=== PATIENT | female | born 1960 | race Caucasian/White ===

== ENCOUNTER 2021-02-22 17:40 | Inpatient (IN) | payer SELFPAY ==
[2021-02-22 21:48] LABS: Urine Blood 1+ (Negative); Urine Glucose Negative (Negative); Urine Protein Negative (Negative)
[2021-02-22 21:57] LABS: Absolute Lymphocytes (CBC) 2.6 K/uL (0.7-4.9); Basophils % 0.9 % (0-1.3); Hematocrit 41.6 % (36.0-45.0); Lymphocytes % 24.7 % (15.3-44.8); MPV 7.8 fL (7.6-11.3); RBC Red Blood Cell Count 4.44 M/uL (3.86-4.86)
[2021-02-22] MEDS ORDERED: NA CHLORIDE 0.9% 1,000 ML ONE (22:18)
[2021-02-22 22:21] LABS: ALT/SGPT 88 U/L (12-78); AST/SGOT 60 U/L (15-37); Albumin 4.2 g/dL (3.4-5.0); Alkaline Phosphatase 103 U/L (45-117); BUN Blood Urea Nitrogen 7 mg/dL (7-18); Barbiturates NEGATIVE (NEGATIVE); Benzodiazepines NEGATIVE (NEGATIVE); Bicarbonate 22 mmol/L (21-32); Bilirubin Direct 0.2 mg/dL (0-0.2); Bilirubin Total 0.6 mg/dL (0.2-1.0); Cocaine NEGATIVE (NEGATIVE); Glucose Level 96 mg/dL (74-106); METHAMPHETAM NEGATIVE (NEGATIVE); Methadone NEGATIVE (NEGATIVE); Opiates NEGATIVE (NEGATIVE); Phencyclidine NEGATIVE (NEGATIVE); Potassium 3.5 mmol/L (3.5-5.1); Protein, Total 8.1 g/dL (6.4-8.2); Sodium Level 129 mmol/L (136-145); THC Cannibis POSITIVE (NEGATIVE)
[2021-02-22 22:32] LABS: Protime INR 0.86
[2021-02-22] MEDS ORDERED: KETOROLAC 30 MG/ML INJ ONE (23:33)
[2021-02-23 00:02] LABS: Urine Bacteria <20 /HPF (<20); Urine RBC <5 /HPF (NONE SEEN)
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
--- NOTE | 2021-02-23 00:17 | EDPHYS ---
Physician Documentation [facility] Name: Mary Zhang Age: 60 yrs Sex: Female : 1960 Arrival Date: 02/22/2021 Time: 17:45 Bed 17 Private MD: Aron Vega E ED Physician Jacques Davila HPI: 02/22 20:26 This 60 yrs old Female presents to ER via Ambulatory with complaints of pm1 Depression, Suicidal Ideation, Right Flank Pain. 20:26 The patient complains of pain in the right low back. The pain radiates to the right pm1 lower quadrant. Onset: The symptoms/episode began/occurred 8 day(s) ago, and became worse 2 day(s) ago. Modifying factors: The symptoms are alleviated by nothing. the symptoms are aggravated by nothing. Associated signs and symptoms: Pertinent negatives: diarrhea, dysuria, fever, urinary frequency, nausea, vomiting. Severity of pain: in the emergency department the pain is actually worse. The patient has been recently seen by a physician: the patient's primary care provider, Dr. Ibanez earlier today, with similar presenting complaints, and was sent to the [facility] Emergency Department for further evaluation. Patient went to her PCP, Dr. Ibanez, today for two complaints. She was feeling depression over the upcoming one year anniversary of the of her and the of her father in November. 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 Discussed it with her PCP and he accepted a verbal no self harm promise and discharged her home. Patient was also complaining of 8 days of right flank pain that has gotten worse over the past two days. PCP believed that she might have a bad UTI and wanted her to come to the ER for evaluation. Historical: - Allergies: 17:53 No Known Allergies; ll1 - Home Meds: 22:41 trazodone 50 mg Oral tab 1 tab nightly [Active]; amlodipine 10 mg tab 1 tab once daily sf [Active]; fluoxetine 10 mg Oral cap 10 mg once daily [Active]; lorazepam 0.5 mg Oral tab 1 tab 2 times per day [Active]; - PMHx: 17:53 Depression; Hypertension; Anxiety; ll1 - PSHx: 17:53 Hysterectomy; arm sx; ll1 - Immunization history:: Flu vaccine is up to date. - Social history:: Smoking status: Patient reports the use of cigarette tobacco products, smokes one pack cigarettes per day. ROS: 20:26 Constitutional: Negative for fever, chills, and weight loss, Cardiovascular: Negative pm1 for chest pain, palpitations, and edema, Respiratory: Negative for shortness of breath, cough, wheezing, and pleuritic chest pain. 20:26 : Negative for injury, bleeding, discharge, and swelling, MS/Extremity: Negative for injury and deformity, Skin: Negative for injury, rash, and discoloration, Neuro: Negative for headache, weakness, numbness, tingling, and seizure. 20:26 Abdomen/GI: Positive for abdominal pain, of the right lower quadrant. 20:26 Back: Positive for flank pain, on the right. 20:26 Psych: Positive for depression, suicidal ideation, Negative for drug dependence, alcohol dependence, auditory hallucinations, homicidal ideation, suicide gesture. Exam: 20:26 Constitutional: This is a well developed, well nourished patient who is awake, alert, pm1 and in no acute distress. Head/Face: Normocephalic, atraumatic. 20:26 MS/ Extremity: Pulses equal, no cyanosis. Neurovascular intact. Full, normal range of motion. 20:26 Cardiovascular: Exam negative for acute changes, Rate: normal, Rhythm: regular, Pulses: no pulse deficits are appreciated, Edema: is not appreciated. 20:26 Respiratory: Exam negative for acute changes, respiratory distress, shortness of breath. 20:26 Abdomen/GI: Exam negative for acute changes, Inspection: abdomen appears normal, Palpation: abdomen is soft and non-tender, in all quadrants. 20:26 Back: pain, that is mild, of the right low back, vertebral tenderness, is not appreciated. 20:26 Neuro: Exam negative for acute changes, Orientation: is normal, Mentation: is normal, Motor: is normal, moves all fours. 20:26 Psych: Behavior/mood is pleasant, cooperative, Affect is calm, Oriented to person, place, time, Judgement / Insight is normal. Delusions/hallucinations are not present. Vital Signs: 17:50 BP 156 / 84; Pulse 105; Resp 17; Temp 98.5; Pulse Ox 95% ; Weight 58.06 kg; Height 5 ll1 ft. 3 in. (160.02 cm); Pain 9/10; 21:38 BP 122 / 82; Pulse 97; Resp 16; Pulse Ox 97% ; sf 22:00 BP 157 / 76; Pulse 98; Resp 16; Pulse Ox 95% ; sf 22:30 BP 143 / 68; Pulse 96; Resp 16; Pulse Ox 96% ; sf 23:00 BP 162 / 78; Pulse 97; Resp 16; Pulse Ox 98% ; sf 04 00:00 BP 144 / 78; Pulse 88; Resp 16; Pulse Ox 94% on R/A; sf 00:05 Pain 7/10; sf 01:00 BP 155 / 78; Pulse 91; Resp 16; Pulse Ox 95% ; sf 02:00 BP 158 / 90; Pulse 108; Resp 16; Pulse Ox 97% ; sf 03:00 BP 146 / 68; Pulse 92; Resp 16; Pulse Ox 95% ; sf 04:00 BP 149 / 72; Pulse 95; Resp 16; Pulse Ox 96% ; sf 05:00 BP 131 / 75; Pulse 97; Resp 16; Pulse Ox 95% ; sf 06:00 BP 135 / 70; Pulse 83; Resp 16; Pulse Ox 97% ; sf 07:00 BP 160 / 90; Pulse 93; Resp 18; Pulse Ox 94% on R/A; mh5 20:17 BP 126 / 60; Pulse 78; Resp 18; Temp 98.7; Pulse Ox 98% ; ea 02/22 17:50 Body Mass Index 22.67 (58.06 kg, 160.02 cm) ll1 MDM: 02/22 20:09 Patient medically screened. pm1 21:29 Data reviewed: vital signs. Data interpreted: Pulse oximetry: on room air is 95 %. pm1 Interpretation: normal. 23:56 Counseling: I had a detailed discussion with the patient and/or guardian regarding: the pm1 historical points, exam findings, and any diagnostic results supporting the discharge/admit diagnosis, lab results, radiology results, the need to transfer to another facility, [facility] does not immediately have the required specialist. 02/23 00:00 ED course: Patient reports that she no longer feels suicidal after hearing her pm1 diagnosis. She does not want to and wants treatment for her likely renal cell cancer. 01:50 Physician consultation: Chun Gaston was contacted at 01:50, regarding regarding pm1 transfer, to [facility]. Patient's renal cancer is not a surgical emergency and patient does not require emergent transfer to address it. Recommends follow up with Dr. Dennison who is urology/oncology for follow up. Have the patient take a copy of the report and images on CD to her appointment. Give the patient the following number to schedule an outpatient appointment with Dr. Dennison [phone]. 02:18 ED course: Discussed plan of care with patient based on conversation with Dr. Gaston. pm1 Patient is agreeable with the plan. Informed her that the next plan is for the patient to be evaluated by [facility] since she is medically cleared. 02:56 ED course: Discussed case with [facility], Recommendation for acute inpatient pm1 treatment. Discussed plan of care with the patient and she is agreeable to going to a inpatient facility voluntarily. 20:15 ED course: Patient alert and rational. Said she is not suicidal or homicidal. Does not pkl want to be transferred to psychiatric facility. Will follow up at [facility] as outpatient and will make appointment tomorrow. 21:07 ED course: Talked to Dr. Barker ( Urologist ) To start on IV Heparin and will consult pkl tomorrow.. 21:40 ED course: Talked to Balwinder ( [place] ) Admit to Dr. Scott. pkl 02/22 20:19 Order name: Acetaminophen; Complete Time: 22:59 pm1 02/22 20:19 Order name: Basic Metabolic Panel; Complete Time: 22:59 pm1 02/22 20:19 Order name: CBC with Diff; Complete Time: 22:59 pm1 02/22 20:19 Order name: ETOH Level; Complete Time: 22:59 pm1 02/22 20:19 Order name: Hepatic Function; Complete Time: 22:59 pm1 02/22 20:19 Order name: PT-INR; Complete Time: 22:59 pm1 02/22 20:19 Order name: Ptt, Activated; Complete Time: 22:59 pm1 02/22 20:19 Order name: Salicylate; Complete Time: 22:59 pm1 02/22 20:19 Order name: Urine Drug Screen; Complete Time: 22:59 pm1 02/22 20:50 Order name: Urine Microscopic Only; Complete Time: 00:14 pm1 02/22 21:48 Order name: Urine Dipstick-Ancillary; Complete Time: 21:53 EDMS 02/22 23:49 Order name: SARS-COV-2 RT PCR; Complete Time: 23:56 EDMS 02/24 06:07 Order name: CBC with Automated Diff EDMS 02/22 20:19 Order name: EKG; Complete Time: 20:20 pm1 02/22 20:50 Order name: CT Abd/Pelvis - IV Contrast Only; Complete Time: 20:25 pm1 02/23 07:12 Order name: Diet Regular; Complete Time: 07:13 mh5 02/24 06:25 Order name: Comprehensive Metabolic Panel EDMS 02/24 06:25 Order name: Lactic Dehydrogenase EDMS 02/24 06:25 Order name: T4 Free EDMS 02/24 06:25 Order name: Magnesium EDMS 02/24 06:25 Order name: Thyroid Stimulating Hormone EDMS 02/24 06:50 Order name: PTT, Activated Partial Thromb EDMS 02/22 20:19 Order name: EKG - Nurse/Tech; Complete Time: 22:18 pm1 02/22 20:19 Order name: IV Saline Lock; Complete Time: 21:51 pm1 02/22 20:19 Order name: Labs collected and sent; Complete Time: 21:51 pm1 02/22 20:19 Order name: Urine Dipstick-Ancillary (obtain specimen); Complete Time: 21:51 pm1 02/23 10:33 Order name: Diet Finger Food; Complete Time: 10:34 bd 02/23 15:06 Order name: Diet Finger Food; Complete Time: 15:06 bd 02/23 22:49 Order name: CONS Physician Consult EDAZ Administered Medications: 02/22 22:11 Drug: NS 0.9% 1000 ml Route: IV; Rate: 1000 ml; Site: right forearm; sf 02/23 00:00 Follow up: Response: No adverse reaction; IV Status: Completed infusion; IV Intake: sf 1000ml 02/22 23:18 Drug: TORadol - Ketorolac 15 mg Route: IVP; Site: right forearm; sf 02/23 00:05 Follow up: Response: No adverse reaction; Pain is decreased sf 07:57 Drug: amLODIPine 10 mg Route: PO; ld1 08:30 Follow up: Response: No adverse reaction ld1 08:08 Drug: Tylenol #3 (300 mg-30 mg) 1 tablet Route: PO; ld1 08:40 Follow up: Response: No adverse reaction ld1 08:46 Drug: FLUoxetine 10 mg Route: PO; ld1 09:19 Follow up: Response: No adverse reaction bp 21:35 Drug: Heparin (DVT/PE Drip) 18 units/kg/hr - (HEParin 50952 units, D5W 500 ml) ea {Co-Signature: em (Colton Cazares RN).} Route: IV; Rate: 1 calculated rate; Site: right forearm; 22:23 Drug: Tylenol #3 (300 mg-30 mg) 1 tablet Route: PO; ea Disposition: 20:15 Co-signature as Attending Physician, Jacques Davila MD. pkl Disposition: 02/23/21 21:46 Hospitalization ordered by Em Scott for Inpatient Admission. Preliminary diagnosis is Depression.. Large right renal mass with tumor thrombus extending into renal vein. - Bed requested for Telemetry/MedSurg (Inpatient). - Status is Inpatient Admission. jd3 - Condition is Stable. - Problem is new. - Symptoms are unchanged. Signatures: Dispatcher [employer] [facility] Elizabeth Rousseau RN RN dw Lam, Pin, MD MD pkl Nieto, Roman, MD MD rn Sacha Noe, EDUCATIONAL SPEECH LANGUAGE CLINICIAN EDUCATIONAL SPEECH LANGUAGE CLINICIAN pm1 Julia Naidu RN RN ea Davies, Jonathon, RN RN jd3 Indira Pollock RN RN ll1 Bry Davila RN RN sf Dibbern, Lauren, RN RN ld1 Sudarshan Khalil RN bp Colton Cazares RN em Corrections: (The following items were deleted from the chart) 02/22 22:28 21:57 CORONAVIRUS+MR.LAB.GIORGIO ordered. [facility] 02/23 00:14 02/22 23:56 Counseling: I had a detailed discussion with the patient and/or guardian pm1 regarding: the historical points, exam findings, and any diagnostic results supporting the discharge/admit diagnosis, pm1 02/23 00:26 00:16 02/23/2021 00:16 Transfer ordered to [facility]. pm1 Diagnosis is Other intra-abdominal and pelvic swelling, mass and lump - Right renal massSuicidal ideations. Reason for transfer: Specialty. Accepting physician is MD. Condition is Stable. Problem is new. Symptoms have improved. pm1 02:58 00:26 02/23/2021 00:16 Transfer ordered to [facility]. pm1 Diagnosis is Other intra-abdominal and pelvic swelling, mass and lump - Right renal massSuicidal ideations; Right Flank Pain. Reason for transfer: Specialty. Accepting physician is . Condition is Stable. Problem is new. Symptoms have improved. pm1 20:22 02:58 02/23/2021 00:16 Transfer ordered to [facility]. Diagnosis is Suicidal pkl ideations; Other intra-abdominal and pelvic swelling, mass and lump - Right renal mass; Right Flank Pain. Reason for transfer: Specialty. Accepting physician is MD. Condition is Stable. Problem is new. Symptoms have improved. pm1 20:35 20:24 02/23/2021 20:24 Discharged to Home. Impression: Depression. Condition is Stable. pkl Forms are Medication Reconciliation Form, Thank You Letter, Antibiotic Education, Prescription Opioid Use. Follow up: Private Physician; When: Tomorrow; Reason: Re-evaluation by your physician. Problem is new. Symptoms have improved. pkl 21:41 21:39 02/23/2021 20:24 Discharged to Home. Impression: Depression. Large right renal pkl mass with tumor thrombus extending into right renal vein. Condition is Stable. Forms are Medication Reconciliation Form, Thank You Letter, Antibiotic Education, Prescription Opioid Use. Follow up: Private Physician; When: Tomorrow; Reason: Re-evaluation by your physician. Problem is new. Symptoms have improved. pkl 02/24 00:58 02/23 21:46 Hospitalization Ordered by Em Scott MD for Inpatient Admission. dw Preliminary diagnosis is Depression.. Large right renal mass with tumor thrombus extending into renal vein. Bed requested for Telemetry/MedSurg (Inpatient). Status is Inpatient Admission. Condition is Stable. Problem is new. Symptoms are unchanged. pkl 02/24 06:38 00:58 02/23/2021 21:46 Hospitalization Ordered by Em Scott MD for Inpatient dw Admission. Preliminary diagnosis is Depression.. Large right renal mass with tumor thrombus extending into renal vein. Bed requested for [facility] ER HOLD. Status is Inpatient Admission. Condition is Stable. Problem is new. Symptoms are unchanged. dw 08:31 06:38 02/23/2021 21:46 Hospitalization Ordered by Em Scott MD for Inpatient jd3 Admission. Preliminary diagnosis is Depression.. Large right renal mass with tumor thrombus extending into renal vein. Bed requested for Telemetry/MedSurg (Inpatient). Status is Inpatient Admission. Condition is Stable. Problem is new. Symptoms are unchanged. dw
[2021-02-23] MEDS ORDERED: AMLODIPINE 10 MG TAB ONE (08:11)
[2021-02-23] MEDS ORDERED: CODEINE 30MG/APAP 300MG TAB ONE ×2 (08:21→22:40)
[2021-02-23] MEDS ORDERED: FLUOXETINE 10 MG CAP PO ONE (08:30)
--- NOTE | 2021-02-23 12:00 | RAD REPORT ---
EXAM DESCRIPTION: CT - Abdomen Pelvis W Contrast - 02/23/2021 6:58 am CLINICAL HISTORY: FLANK PAIN. COMPARISON: None. TECHNIQUE: CT of the abdomen and pelvis was performed following intravenous administration of iodina asha contrast. Arterial phase images through the abdomen, and portal venous phase images through the a bdomen and pelvis were obtained. Oral contrast was not administered. Axial, coronal, and sagittal sof t tissue window reconstructions were created and sent to PACS. This exam was performed according to our departmental dose-optimization program, which includes autom ated exposure control, adjustment of the mA and/or kV according to patient size and/or use of iterati ve reconstruction technique. FINDINGS: Thoracic: Small bilateral fat-containing Bochdalek hernias. Hepatobiliary: Tiny hypodensity along the lateral of the right hepatic lobe measures 0.8 cm, possibly a cyst or benign hemangioma. No concerning hepatic lesion identified. The hepatic and portal veins a re patent. The gallbladder is unremarkable. No biliary ductal dilatation. Pancreas: Unremarkable. Spleen: Unremarkable. Gastrointestinal: No evidence of bowel obstruction or perienteric inflammation. The appendix is holden l. Adrenals: No abnormality identified in either adrenal gland. Renal: Right interpolar renal mass measures 4.2 x 4.6 x 5.1 cm centered in the renal sinus. No extens ion beyond the renal capsule. There is tumor thrombus extending into the right renal vein by 2.1 cm. No thrombus identified IVC. The single right renal artery is patent. No hydronephrosis or urolithiasi s. Bladder/Reproductive: Unremarkable appearance of the urinary bladder by CT technique. Vascular/Lymphatics: No lymphadenopathy identified by CT size criteria. Abdominal aorta is normal in caliber. Moderate atherosclerosis. The major visceral vessels are patent. Musculoskeletal: No concerning osseous lesion identified. Osteopenia. L5-S1 disc and endplate degener ative changes. Mild anterior wedge compression deformity at L4. Fluid / peritoneum: No significant free fluid. No free intraperitoneal air identified. IMPRESSION Large right renal mass centered in the renal sinus with tumor thrombus extending into the right renal vein by 2.1 cm. No IVC thrombus identified. Findings are concerning for malignancy until proven otherwise. Electronically signed by: Mary Quevedo MD 02/22/2021 11:27 PM CDT Due to temporary technical issues with the PACS/Fluency reporting system, reports are being signed by the in house radiologist without review as a courtesy to ensure prompt reporting. The interpreting r adiologist is fully responsible for the content of the report.
--- NOTE | 2021-02-23 12:47 | EKG ---
Test Date: 2021-02-22 Test Time: 22:08:41 Inspector Multifocal Lens: STAN MEASUREMENT RESULTS: Intervals: Rate: 96 SC: 120 QRSD: 86 QT: 364 QTc: 459 [place]: P: 76 SC: 120 QRS: 68 T: 65 INTERPRETIVE STATEMENTS: Normal sinus rhythm Minimal voltage criteria for LVH, may be normal variant ST abnormality, possible digitalis effect Abnormal ECG No previous ECG available for comparison Electronically Signed On 02-23-21 12:45:26 CDT by Andriy Gilman
[2021-02-23] MEDS ORDERED: HEPARIN/D5W 25,000 UNIT/500 ML BAG IV ONE (21:37)
[2021-02-23] MEDS ORDERED: HEPARIN 5000 UNIT/ML 1 ML VIAL ONE (21:37)
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
[2021-02-24 02:51] VITALS: BMI 22.6
[2021-02-24] MEDS ORDERED: ACETAMINOPHEN 500 MG TAB PO PRN (03:42)
[2021-02-24] MEDS ORDERED: ALBUTEROL 2.5 MG/3 ML NEB SOL NEB PRN (03:42)
[2021-02-24] MEDS ORDERED: ONDANSETRON 4 MG/2 ML VIAL IV PRN (03:42)
[2021-02-24] MEDS: MORPHINE 2 MG/ML SYR IV PRN ×3 (05:25→20:54)
[2021-02-24] MEDS ORDERED: MORPHINE 2 MG/ML SYR ONE (05:45)
[2021-02-24 05:51] LABS: Basophils % 1.2 % (0-1.3); Hematocrit 37.7 % (36.0-45.0); Lymphocytes % 27.5 % (15.3-44.8); MPV 7.9 fL (7.6-11.3); RBC Red Blood Cell Count 3.92 M/uL (3.86-4.86)
[2021-02-24 06:24] LABS: ALT/SGPT 62 U/L (12-78); AST/SGOT 37 U/L (15-37); Albumin 3.3 g/dL (3.4-5.0); Alkaline Phosphatase 74 U/L (45-117); BUN Blood Urea Nitrogen 8 mg/dL (7-18); Bicarbonate 28 mmol/L (21-32); Bilirubin Total 0.6 mg/dL (0.2-1.0); Glucose Level 91 mg/dL (74-106); Magnesium 2.2 mg/dL (1.8-2.4); Potassium 3.3 mmol/L (3.5-5.1); Protein, Total 6.4 g/dL (6.4-8.2); Sodium Level 138 mmol/L (136-145)
[2021-02-24] MEDS ORDERED: POTASSIUM 25 MEQ EFFERV TAB PO ONE ×2 (06:57→15:55)
[2021-02-24] MEDS: NICOTINE 14 MG/PAT TD SCH (08:45)
[2021-02-24] MEDS: FLUOXETINE 10 MG CAP PO SCH (08:58)
[2021-02-24] MEDS: AMLODIPINE 10 MG TAB PO SCH (08:58)
--- NOTE | 2021-02-24 20:17 | RAD REPORT ---
EXAM DESCRIPTION: CT - Head Brain W/Wo Con - 02/24/2021 8:09 pm CLINICAL HISTORY: Assess for brain metastases relative to renal mass Headache, drowsiness COMPARISON: Abdomen Pelvis W Contrast dated 02/22/2021 TECHNIQUE: All CT scans are performed using dose optimization technique as appropriate and may inclu de automated exposure control or mA/KV adjustment according to patient size. FINDINGS: No intracranial hemorrhage, hydrocephalus or extra-axial fluid collection.No areas of brai n edema or evidence of midline shift. Post-contrast sequences shows no pathologic enhancement. The paranasal sinuses and mastoids are clear. The calvarium is intact. IMPRESSION: No findings suspicious for intracranial metastasis. If there is continued clinical conc gloria for intracranial metastatic disease, MRI brain with contrast would be recommended.
--- NOTE | 2021-02-24 20:24 | RAD REPORT ---
EXAM DESCRIPTION: CT - Thorax W/ Con CLINICAL HISTORY: Chest pain Right renal mass with tumor thrombus COMPARISON: No comparisons FINDINGS: Several subtle vague ground-glass area of nodularity seen subpleural location of the upper lobes. These are not typical nodules seen in cases of metastatic disease. Surveillance imaging the n odules may be considered. No pleural thickening or pleural effusion. No pneumothorax. No axillary, mediastinal or hilar adenopathy. No lytic or blastic bone lesion. No gross upper abdominal finding. All CT scans are performed using dose optimization technique as appropriate and may include automated exposure control or mA/KV adjustment according to patient size. IMPRESSION: Several vague small ground-glass areas of nodularity in a subpleural location both upper lobes is low suspicion for metastatic disease.Suggest followup surveillance CT chest in 3 months.
[2021-02-24 23:51] LABS: Urine Appearance CLEAR (Clear); Urine Bilirubin NEGATIVE (Negataive); Urine Blood NEGATIVE (Negative); Urine Color YELLOW (Yellow); Urine Glucose NEGATIVE (Negative); Urine Protein NEGATIVE (Negative); Urine Specific Gravity <=1.005 (1.005-1.030); Urine Urobilinogen 0.2 mg/dL (0.2-1.0); Urine pH 7.5 (5.0-7.0)
[2021-02-25 00:08] LABS: Urine Microscopic Reflex NO UMIC
[2021-02-25] MEDS: LORAZEPAM 0.5 MG TABLET PO PRN (00:28)
[2021-02-25] MEDS: MORPHINE 2 MG/ML SYR IV PRN ×4 (01:54→19:26)
[2021-02-25] MEDS: HEPARIN/D5W 25,000 UNIT/500 ML BAG IV SCH (01:55)
[2021-02-25 05:33] LABS: BUN Blood Urea Nitrogen 8 mg/dL (7-18); Bicarbonate 31 mmol/L (21-32); Glucose Level 91 mg/dL (74-106); Potassium 4.2 mmol/L (3.5-5.1); Sodium Level 139 mmol/L (136-145)
[2021-02-25] MEDS: AMLODIPINE 10 MG TAB PO SCH (07:51)
[2021-02-25] MEDS: NICOTINE 14 MG/PAT TD SCH (07:51)
[2021-02-25] MEDS: FLUOXETINE 10 MG CAP PO SCH (07:51)
--- NOTE | 2021-02-25 17:00 | RAD REPORT ---
EXAM DESCRIPTION: MRI - Mri Abdomen W/Wo Cont - 02/25/2021 4:35 pm CLINICAL HISTORY: Right renal mass/tumor thrombus. Flank pain COMPARISON: Head Brain W/Wo Con dated 02/24/2021; Thorax W/ Con dated 02/24/2021; Abdomen Pelvis W Con trast dated 02/22/2021 FINDINGS: There is an irregular mass lesion involving the posterior aspect of the mid right kidney m easuring 43 x 38 mm. The mass appears to extend into the right renal pelvis. The proximal right renal vein shows a small amount of tumor thrombus. The thrombus does not appear to extend into the vena ca va. The left kidney appears unremarkable. The visualize aspects the appears old organs appear without agg ressive abnormality. No bulky adenopathy in the abdomen. IMPRESSION: Irregular mass lesion involving the posterior mid right kidney with extension into the r enal hilum. Neoplastic process is the most likely etiology. There is a small amount of thrombus in the right renal vein and near the hepatic hilum. No thrombus s een in the vena cava.
[2021-02-25] MEDS: ENSURE ENLIVE 237 ML CAN PO SCH (19:27)
[2021-02-25] MEDS: TRAZODONE 50 MG TABLET PO PRN (22:14)
--- NOTE | 2021-02-26 00:14 | CON ---
Date of Consultation: 02/24/2021 Reason For Consultation: Right renal mass. History Of Present Illness: Ms. Zhang is a 60-year-old woman with hysterectomy, hypertension, depre ssion, COPD, who ultimately presented to the Emergency Department with complaints of about a 1-week h istory of right lower quadrant and flank pain. The pain was constant, sharp, and 8/10 in severity. Associated with the pain, she had night sweats and anorexia that resulted in 25-30 pounds of weight l oss over the last few months. She also noted some pelvic cramping, which she related and thought may have been kidney stones. She ultimately presented to the Emergency Department where a CT scan was p erformed revealing a right interpolar renal mass measuring 4.2 x 4.6 x 5.1 cm, centered in the renal sinus without extension beyond the renal capsule, but with tumor thrombus extending into the right re nal vein by 2.1 cm. No thrombus was identified in the inferior vena cava. I was initially consulted by an Emergency Department physician at the time of the patient's admission. When I visited with th e patient, she provided the history as described above and denied the presence of any gross hematuria or dysuria. Past Medical History: As described above. Hypertension, COPD, depression, and history of hysterecto my. Social History: The patient is a smoker actively of as much as 1 pack per day and has been doing so for 40 years. Physical Examination: The patient was alert, awake, and oriented x3, in no acute distress. She was attentive and cooperative and pleasant and conversant. There was no dyspnea or signs of respiratory distress nor use of accessory muscles to breathe. Her abdomen was nontender. She was lying in bed without any signs of physical musculoskeletal limitation. Laboratory Data: Laboratory analysis, 02/24/2021, creatinine 0.49, calcium 8.4, alkaline phosphatase within normal limits, TSH elevated at 9.12. Assessment And Recommendations: This is a 60-year-old woman with hypertension, depression, chronic o bstructive pulmonary disease, and history of hysterectomy, who presents with a centrally located righ t 5.1 cm renal mass involving sinus fat and extending into the renal vein by 2.1 cm. Since this mass is suspicious based on her renal vein extension for being renal cell carcinoma, stagi ng workup will be planned as described below. However, given her extensive smoking history and the c entral location of the mass, potentially involving the renal pelvis, I recommend the following: Voided cytology to assess for signs of urothelial malignancy, which if present would alter the recomm endations for surgical management to include a nephroureterectomy in addition to cystoscopy. At this point, however, given the suspicion that this represents a renal cell carcinoma, we will arra nge brain imaging as well as chest imaging via CT given the tumor thrombus extension, which would sug gest more aggressive high-risk disease. I will also recommend an MRI of the abdomen to more carefull y stage the renal mass and the tumor thrombus extension to determine whether she might be amenable to a laparoscopic nephrectomy if this is renal cell likely or if she might require transfer to the [facility] capable of bypass in order to plan for excision of a portion of the tumor thrombus out of the in ferior vena cava. Addendum: 02/25/2021, MRI of the abdomen with and without contrast demonstrates an irregular mass le emily involving the posterior aspect of the mid right kidney measuring 4.3 x 3.8 cm. The mass appears to extend into the right renal pelvis. The proximal right renal vein shows a small amount of tumor thrombus. The tumor thrombus does not appear to extend into the vena cava. The left kidney is unrem arkable. Again, I directly reviewed the images of the MRI in great detail, and the tumor thrombus does extend significantly into the right renal vein, but is approximately 1.5 cm from the junction with the IVC t o my measurement. CT of the brain and head with and without contrast done, 02/24/2021: No suspicious findings for intr acranial metastasis. 02/24/2021, CT of the thorax with contrast, impression: Several vague small ground-glass areas of no dularity in a subpleural location of both upper lobes bilaterally with low suspicion that it represen ts metastatic disease. Followup surveillance chest CT in 3 months was recommended. Total time spent in consultation over 1 hour with approximately 30 minutes [id number] time with the patient spent. MARTA/SILVA Voice ID: [id number] Report ID: [id number]
[2021-02-26] MEDS: MORPHINE 2 MG/ML SYR IV PRN ×4 (01:55→20:30)
[2021-02-26 03:59] LABS: Absolute Lymphocytes (CBC) 2.2 K/uL (0.7-4.9); Hematocrit 40.5 % (36.0-45.0); Lymphocytes % 32.8 % (15.3-44.8); RBC Red Blood Cell Count 4.18 M/uL (3.86-4.86)
[2021-02-26 04:16] LABS: Albumin 3.5 g/dL (3.4-5.0); Bilirubin Total 0.2 mg/dL (0.2-1.0); Magnesium 2.3 mg/dL (1.8-2.4); Potassium 4.6 mmol/L (3.5-5.1); Protein, Total 6.6 g/dL (6.4-8.2)
[2021-02-26] MEDS: FLUOXETINE 10 MG CAP PO SCH (07:35)
[2021-02-26] MEDS: NICOTINE 14 MG/PAT TD SCH (07:36)
[2021-02-26] MEDS: AMLODIPINE 10 MG TAB PO SCH (07:36)
[2021-02-26] MEDS: ENSURE ENLIVE 237 ML CAN PO SCH ×2 (07:36→20:59)
[2021-02-26] MEDS: HEPARIN/D5W 25,000 UNIT/500 ML BAG IV SCH (11:48)
[2021-02-26] MEDS ORDERED: DOCUSATE NA 100 MG CAP PO ONE (19:49)
[2021-02-26] MEDS: TRAZODONE 50 MG TABLET PO PRN (20:30)
[2021-02-26] MEDS: DOCUSATE NA 100 MG CAP PO PRN (20:30)
[2021-02-27] MEDS: MORPHINE 2 MG/ML SYR IV PRN ×4 (03:47→23:07)
[2021-02-27] MEDS: AMLODIPINE 10 MG TAB PO SCH (08:18)
[2021-02-27] MEDS: FLUOXETINE 10 MG CAP PO SCH (08:21)
[2021-02-27] MEDS: NICOTINE 14 MG/PAT TD SCH (08:26)
[2021-02-27] MEDS: ENSURE ENLIVE 237 ML CAN PO SCH ×2 (08:26→20:37)
[2021-02-27] MEDS: LORAZEPAM 0.5 MG TABLET PO PRN (14:27)
[2021-02-27] MEDS: HEPARIN/D5W 25,000 UNIT/500 ML BAG IV SCH (16:06)
[2021-02-27] MEDS: DOCUSATE NA 100 MG CAP PO PRN (20:34)
[2021-02-27] MEDS: TRAZODONE 50 MG TABLET PO PRN (23:08)
[2021-02-28] MEDS: LORAZEPAM 0.5 MG TABLET PO PRN ×2 (01:17→11:17)
--- NOTE | 2021-02-28 06:46 | P.PN ---
Subjective Date of Service: 02/25/21 Subjective: No new changes, No C/O voiced, Improving Patient is doing well. Does seem as depressed. Explain her about her current clinical situation. I did speak to Oncology and may not need anti coagulation and surgical intervention has the thrombus with probably will be removed if patient has nephrectomy. I this time will continue heparin drip. Await decision by surgery after reviewing MRI. Review of Systems 10-point ROS is otherwise unremarkable Physical Examination - Vital Signs Temperature: 97.6 F Blood Pressure: 117/61 Pulse: 79 Respirations: 18 Pulse Ox (%): 94 - Physical Exam General: Alert, In no apparent distress, Oriented x3 Respiratory: Clear to auscultation bilaterally, Normal air movement Cardiovascular: Regular rate/rhythm, Normal S1 S2 Gastrointestinal: Normal bowel sounds, Soft and benign, Non-distended Musculoskeletal: No clubbing, No swelling Neurological: Normal strength at 5/5 x4 extr, Normal tone, Sensation intact, Cranial nerves 3-12 intact Assessment & Plan - Problems (Diagnosis) (1) Renal mass Current Visit: Yes Status: Acute (2) Depression Current Visit: Yes Status: Chronic Qualifiers: Depression Type: unspecified Qualified Code(s): F32.9 - Major depressive disorder, single episode, unspecified (3) HTN (hypertension) Current Visit: Yes Status: Chronic Qualifiers: Hypertension type: essential hypertension Qualified Code(s): I10 - Essential (primary) hypertension - Plan Plan: 1. Urology consultation 2. Plan for surgery early next week 3. Heparin drip 4. Out of bed and ambulate 5. Hold off on antidepressant at this time 6. GI and DVT prophylaxis Discharge Plan: Home - Advance Directives Does patient have a Living Will: Yes Does patient have a Durable POA for Healthcare: Yes - Code Status/Comfort Care Code Status Assessed: Yes Code Status: Full Code Critical Care: No Time Spent Managing PTS Care (In Minutes): 45
--- NOTE | 2021-02-28 06:50 | P.PN ---
Date of Service: 02/26/21 Subjective Patient is doing well with no new complaints. Awaiting Urology input. Continue with heparin drip Review of Systems 10-point ROS is otherwise unremarkable Physical Examination - Vital Signs Reviewed - Physical Exam General: Alert, In no apparent distress, Oriented x3 Respiratory: Clear to auscultation bilaterally, Normal air movement Cardiovascular: Regular rate/rhythm, Normal S1 S2 Gastrointestinal: Normal bowel sounds, Soft and benign, Non-distended Assessment & Plan - Problems (Diagnosis) (1) Renal mass Current Visit: Yes Status: Acute (2) Depression Current Visit: Yes Status: Chronic Qualifiers: Depression Type: unspecified Qualified Code(s): F32.9 - Major depressive disorder, single episode, unspecified (3) HTN (hypertension) Current Visit: Yes Status: Chronic Qualifiers: Hypertension type: essential hypertension Qualified Code(s): I10 - Essential (primary) hypertension - Plan Plan: 1. Urology consultation appreciated; MRI w/ a large renal mass. Patient with renal vein thrombus 2. Plan for surgery early next week 3. Heparin drip 4. Out of bed and ambulate 5. Hold off on antidepressant at this time 6. GI and DVT prophylaxis
--- NOTE | 2021-02-28 06:51 | P.PN ---
Date of Service: 02/27/21 Subjective Patient continues to do well with no new complaints Review of Systems 10-point ROS is otherwise unremarkable Physical Examination - Vital Signs Reviewed - Physical Exam General: Alert, In no apparent distress, Oriented x3 Respiratory: Clear to auscultation bilaterally, Normal air movement Cardiovascular: Regular rate/rhythm, Normal S1 S2 Gastrointestinal: Normal bowel sounds, Soft and benign, Non-distended Assessment & Plan - Problems (Diagnosis) (1) Renal mass Current Visit: Yes Status: Acute (2) Depression Current Visit: Yes Status: Chronic Qualifiers: Depression Type: unspecified Qualified Code(s): F32.9 - Major depressive disorder, single episode, unspecified (3) HTN (hypertension) Current Visit: Yes Status: Chronic Qualifiers: Hypertension type: essential hypertension Qualified Code(s): I10 - Essential (primary) hypertension - Plan Plan: Continue with plan of care as mentioned below 1. Urology consultation appreciated; MRI w/ a large renal mass. Patient with renal vein thrombus; possible surgical intervention on Sunday 2. Plan for surgery Sunday 3. Heparin drip 4. Out of bed and ambulate 5. Hold off on antidepressant at this time 6. GI and DVT prophylaxis
[2021-02-28] MEDS: NICOTINE 14 MG/PAT TD SCH (09:00)
[2021-02-28] MEDS: FLUOXETINE 10 MG CAP PO SCH (09:03)
[2021-02-28] MEDS: AMLODIPINE 10 MG TAB PO SCH (09:03)
[2021-02-28] MEDS: ENSURE ENLIVE 237 ML CAN PO SCH ×2 (09:04→21:00)
[2021-02-28] MEDS: MORPHINE 2 MG/ML SYR IV PRN ×3 (09:15→21:03)
[2021-02-28] MEDS ORDERED: TRAMADOL HCL 50 MG TAB PO PRN (10:54)
[2021-02-28] MEDS: HYDROCODONE/APAP 7.5/325 MG TAB PO PRN ×2 (12:29→17:40)
[2021-02-28] MEDS ORDERED: MAGNESIUM CITRATE 300 ML BOT PO SCH (13:00)
--- NOTE | 2021-02-28 14:29 | P.PN ---
Subjective Date of Service: 02/28/21 Primary Care Provider: Dr. Ibanez Chief Complaint: hematuria, renal mass Subjective: Improving, Doing well Physical Examination - Vital Signs Temperature: 98.7 F Blood Pressure: 104/66 Pulse: 79 Respirations: 16 Pulse Ox (%): 96 Assessment & Plan Discharge Plan: Home Plan to discharge in: 24 Hours Physician Review Additional Text: Physical exam: Patient alert, cooperative. Pain appears to be controlled. Heart: Regular rate and rhythm Lungs: Clear to auscultation Abdomen: Soft nontender Extremities: Good range of motion. Impression: Right flank pain secondary to irregular mass lesion involving the posterior mid right kidney with extension into the right hilum, neoplastic process is likely etiology Small amount of thrombus in the right renal vein and near the hepatic hilum Hypertension Depression THC use Plan: Right flank pain secondary to irregular mass lesion involving the posterior mid right kidney with extension into the right hilum, neoplastic process is likely etiology: Spoke with urology. Urology plans for right laparoscopic nephrectomy tomorrow. Will change diet to clear liquid in preparation for this. We will also provide half bottle of mag citrate and Fleet enema later today as recommended by urology. Will obtain EKG in preparation for preop. Keep the patient n.p.o. after midnight. Hold heparin drip prior to surgery per protocol. Will provide medication for pain. Await findings and further recommendations. Small amount of thrombus in the right renal vein and near the hepatic hilum: Currently on heparin drip. This will be held prior to surgery per protocol. Hypertension: Provide medication. Depression: Continue medication. THC use: Patient education will be provided. Continue with nicotine patch Time Spent Managing Pts Care (In Minutes): 55
[2021-02-28] MEDS ORDERED: AMLODIPINE 10 MG TAB PO SCH (14:30)
[2021-02-28] MEDS ORDERED: FLEET ENEMA ADULT PR ONE (20:00)
--- NOTE | 2021-02-28 22:23 | PN ---
This is a preoperative telephone consultation. I contacted and spoke to the patient this evening by phone with regard to the planned right laparosco pic radical nephrectomy on the schedule for tomorrow morning, 03/01/2021, at around 11 a.m. or noon. The patient verified in the early 80s she underwent a Pfannenstiel incision, total hysterectomy sadia use of fibroids. She denies any prior other abdominal surgeries or any stent. We discussed the proc edure planned, the approach planned, and the potential risks, side effects, benefits, and necessary a lterations. I explained that the approach to the procedure would be laparoscopic; however, given her prior pelvic surgery, the potential for intraabdominal adhesion did exist, which could predispose he r to inadvertent bowel injury. I explained that this was the reason for the bowel prep that she is b eing given at this point with the half a bottle of magnesium citrate as well as the Fleet enema and c lear liquid diet that she has been given since around 1 p.m. today. I further explained that were th e intraabdominal adhesions to be significant enough to prohibit laparoscopic access, she would requir e a flank approach to the nephrectomy. The difference being a significant increased time for healing due to the need to divide the abdominal musculature in the flank region. I explained that following a procedure like that, she would require potentially up to 3 months of healing and there was a signi ficant risk of development of a flank hernia even with closure of the flank incision simply as a natu re of that approach. I explained that were we to be able to proceed as planned, laparoscopically, noe mckenzie would have 3 or 4 0.5 cm laparoscopic incisions with an additional periumbilical/infraumbilical inc ision in order to extract the kidney. Following suction extraction, she would require 6 weeks of fela iding any straining or heavy lifting or excessive physical activity. I explained that she would be p lanned to be ambulatory the night of surgery or at least the morning after in order to prevent format ion of DVT. I further explained that following such a laparoscopic approach, there was the potential for chronic kidney disease and an increased risk of dialysis, which I estimated to be less than 15%. I explained the potential need for nephrology management in the process of a consequence of removal of the kidney. We discussed that the benefit is given the tumor and development of the tumor thromb us. The likelihood of this representing a malignancy was high, which I estimated to be greater than 90% to 98%. I further explained the risks of the operation to be the potential for significant bleed ing requiring blood transfusions and confirmed that she had no issue receiving a transfusion were jarrod t to become necessary. The patient expressed understanding of each of the approaches and was appreci ative of the call and was indeed being prepped and ready for surgery tomorrow. They will state to me the plan for the Fleet enema to come later this evening after having already received the magnesium citrate earlier today. We also discussed the planned cessation of the heparin drip in order to allow her coagulation parameters to go back to normal as well as the plan to check her coagulation paramet ers in advance of the surgery. In the end, all of the patient's questions were answered in detail an d she agreed and was ready to proceed with surgery tomorrow. MARTA/SILVA Voice ID: [id number] Report ID: [id number]
[2021-02-28] MEDS: TRAZODONE 50 MG TABLET PO PRN (22:57)
[2021-03-01] MEDS: MORPHINE 2 MG/ML SYR IV PRN (04:30)
[2021-03-01 05:52] LABS: Absolute Lymphocytes (CBC) 1.6 K/uL (0.7-4.9); Basophils % 1.1 % (0-1.3); Hematocrit 36.5 % (36.0-45.0); RBC Red Blood Cell Count 3.75 M/uL (3.86-4.86)
[2021-03-01 06:02] LABS: BUN Blood Urea Nitrogen 7 mg/dL (7-18); Bicarbonate 30 mmol/L (21-32); Glucose Level 91 mg/dL (74-106); Magnesium 2.5 mg/dL (1.8-2.4); Potassium 3.9 mmol/L (3.5-5.1); Sodium Level 140 mmol/L (136-145)
[2021-03-01 06:47] LABS: Blood Morphology Comment NOT SEEN (NOT SEEN); Platelet Estimate ADEQ
[2021-03-01] MEDS: NICOTINE 14 MG/PAT TD SCH (07:27)
[2021-03-01] MEDS: ENSURE ENLIVE 237 ML CAN PO SCH ×2 (07:27→20:35)
[2021-03-01] MEDS: FLUOXETINE 10 MG CAP PO SCH (07:57)
[2021-03-01 09:50] LABS: Protime INR 0.92
--- NOTE | 2021-03-01 10:28 | P.PN ---
Subjective Date of Service: 03/01/21 Primary Care Provider: Dr. Ibanez Chief Complaint: hematuria, renal mass Subjective: Doing well Physical Examination - Vital Signs Temperature: 97 F Blood Pressure: 121/75 Pulse: 80 Respirations: 18 Pulse Ox (%): 95 Assessment & Plan Discharge Plan: Home Plan to discharge in: Greater than 2 days Physician Review Additional Text: Physical exam: Patient alert, cooperative. Pain appears to be controlled. Heart: Regular rate and rhythm Lungs: Clear to auscultation Abdomen: Soft nontender Extremities: Good range of motion. Impression: Right flank pain secondary to irregular mass lesion involving the posterior mid right kidney with extension into the right hilum, neoplastic process is likely etiology Small amount of thrombus in the right renal vein and near the hepatic hilum Hypertension Depression THC use Plan: Right flank pain secondary to irregular mass lesion involving the posterior mid right kidney with extension into the right hilum, neoplastic process is likely etiology: Patient to have laparoscopic right nephrectomy today. Await findings and further recommendations from urology. Anticipate improvement over the next 2 to 3 days. Small amount of thrombus in the right renal vein and near the hepatic hilum: He sergio dodge currently on hold in preparation for surgery. Hypertension: Continue medication. Depression: Continue medication. THC use: Patient education will be provided. Continue with nicotine patch Time Spent Managing Pts Care (In Minutes): 55
[2021-03-01] MEDS ORDERED: LIDOCAINE 1% MPF 5 ML VIAL ONE (10:41)
[2021-03-01] MEDS ORDERED: VECURONIUM 10 MG/VIAL IV ONE ×2 (10:41→12:56)
[2021-03-01] MEDS ORDERED: propofoL 200 MG/20 ML VIAL IV ONE (10:41)
[2021-03-01] MEDS ORDERED: MIDAZOLAM HCL 2 MG/2 ML INJ ONE (10:41)
[2021-03-01] MEDS ORDERED: NS 0.9% VIAL 0 ML ONE (10:42)
[2021-03-01] MEDS ORDERED: FENTANYL CITR 250 MCG/5 ML ONE (10:42)
[2021-03-01] MEDS ORDERED: Ringers Lactate 1,000 ML IV ONE ×3 (10:44→14:44)
[2021-03-01] MEDS ORDERED: CEFAZOLIN/SWI 1gm 1 GM/10 ML SYR ONE (11:02)
[2021-03-01] MEDS ORDERED: EPHEDRINE SULF 50 MG/ML VIAL ONE (11:56)
[2021-03-01] MEDS ORDERED: NS 0.9% VIAL 10 ML ONE (11:56)
[2021-03-01] MEDS ORDERED: GLYCOPYRROLATE 0.2 MG/ML SYR ONE (13:20)
[2021-03-01] MEDS ORDERED: NEOSTIGMINE 1 MG/ML -5 ML ONE (13:44)
[2021-03-01] MEDS: HYDROMORPHONE HCL 1 MG/ML INJ ONE ×2 (13:55→14:00)
[2021-03-01] MEDS ORDERED: ALBUTEROL 2.5 MG/3 ML NEB SOL NEB PRN (14:00)
[2021-03-01] MEDS ORDERED: MEPERIDINE HCL 25 MG/ML SYR ONE (14:13)
[2021-03-01] MEDS ORDERED: ONDANSETRON 4 MG/2 ML VIAL ONE (14:14)
[2021-03-01] MEDS ORDERED: HYDROMORPHONE HCL 0.5 MG/0.5 ML INJ IV PRN (14:29)
[2021-03-01] MEDS ORDERED: HYDROMORPHONE HCL 1 MG/ML INJ ONE (14:46)
[2021-03-01] MEDS: HYDROMORPHONE HCL 0.5 MG/0.5 ML INJ IV PRN ×2 (16:58→17:34)
[2021-03-01] MEDS ORDERED: HYDROMORPHONE/PCA 10 MG/50 ML SYR IV PRN (18:43)
--- NOTE | 2021-03-01 18:54 | P.PN ---
Subjective Date of Service: 03/01/21 Primary Care Provider: Dr. Ibanez Chief Complaint: 11 flank pain s/p right lap radical nephrectomy Despite pain management with Dilaudid 0.4mg q2h initially, bolstered by Dilaudid 0.5mg [id number] x 2 doses, her pain persists at 11/10 in intensity. She has not had much appetite because of the pain. It hurts in the right upper quadrant and extends to the right flank. She is pleased to have a catheter and not have to stand to void. She noted that even prior to the surgery, she was given 2mg Morphine, which would only last 1 hour, and then the pain would recur, but she would have to wait 3 more hours for the next dose. She denies N/V. Physical Examination - Vital Signs Temperature: 97.2 F Blood Pressure: 137/78 Pulse: 77 Respirations: 18 Pulse Ox (%): 98 - Physical Exam General: Alert, Moderate distress HEENT: Atraumatic Respiratory: Normal air movement Gastrointestinal: Non-distended, Guarding Neurological: Normal speech Urinary: Corado catheter Assessment And Plan - Current Problems (Diagnosis) (1) S/P laparoscopic surgery Current Visit: Yes Status: Acute (2) S/p nephrectomy Current Visit: Yes Status: Acute (3) Renal mass Current Visit: Yes Status: Acute Discharge Plan: Home - Code Status/Comfort Care Code Status Assessed: No Code Status: Full Code Physician Review Additional Text: 60yo woman s/p right laparoscopic radical nephrectomy for central renal mass with renal vein tumor thrombus without visible evidence of metastatic disease, but with poor post-operative pain control as yet. - Since she woke up from surgery complaining of pain, it is my impression that we have simply not caught up with her pain as of yet. She was requiring the equivalent of 0.5mg Dilaudid (2mg Morphine) every 1 hour preoperatively; so I am prescribing a Dilaudid OUTSIDE B2B SALES 0.4mg with 10min lockout, and we will provided a 1mg bolus to start. - keep Corado catheter - LR @100cc/hr - labs in AM - if renal function adequate in AM, Toradol 15mg IV q6h scheduled - MOM + Dulcolax in AM - will follow Critical Care: No Time Spent Managing PTS Care (In Minutes): 20
[2021-03-01] MEDS ORDERED: HYDROMORPHONE HCL 1 MG/ML INJ IV ONE (19:00)
[2021-03-01] MEDS: TRAZODONE 50 MG TABLET PO SCH (20:34)
[2021-03-01] MEDS ORDERED: HYDROMORPHONE HCL 0.5 MG/0.5 ML INJ IV ONE (21:54)
--- NOTE | 2021-03-02 00:20 | OP ---
Surgeon: NEMESIO JULES Preoperative Diagnoses: 1. Right centrally located renal mass. 2. Renal vein tumor thrombus extension. Postoperative Diagnoses: 1. Right centrally located renal mass. 2. Renal vein tumor thrombus extension. Principle Procedure: Right laparoscopic radical nephrectomy. Indication For Procedure: Ms. Zhang is a 60-year-old woman with a history of Pfannenstiel incision, hysterectomy for fibroids, hypothyroidism, among other minor medical comorbidities, who presented with flank pain and was diagnosed with a right centrally located renal mass extending into the renal sinus and the renal vein on the right side yet remaining about 1.5 cm from the junction with the IVC. I evaluated her with an MRI of the abdomen in addition to a CT scan of the head and the chest, and there were no signs of metastatic disease, and the extent of tumor, thrombus invasion into the venous system was as documented above. As a result, I counseled her about the risks, benefits, and side effects of undergoing laparoscopic right radical nephrectomy understanding the voided cytology was negative for malignant cells, which would suggest this is unlikely to be of urothelial in nature despite the central location of the tumor abutting the renal pelvis. Procedure In Detail: The patient was consented in the preoperative holding area before being transferred to the operative suite where general anesthesia was induced. She was given Ancef 1 g IV antimicrobial prophylaxis and pneumo boots were provided for DVT prophylaxis. A 12-Chilean Corado catheter was inserted via her urethra due to difficulty with insertion of a standard 16-Chilean catheter. There was return of clear yellow urine. The catheter was secured to her left upper thigh. She was then placed in the modified decubitus position with the left side down. A neuro roll was placed beneath her back as well as an axillary roll beneath her left axilla. She was padded and secured to the table appropriately with pillows between her legs and foam and tape securing her until she was nice and stable and in good position. Chest rolls were performed to ensure that with the patient in a rotated lateral position, the body did not move. Once in appropriate position, 10/10 drapes were applied to cordon off the operative area and her abdomen was prepped using ChloraPrep. She was then draped in standard fashion, and the case was begun using a Veress needle to gain access intra-abdominally and insufflate. The initial Veress access site chosen in the left upper quadrant would not appropriately accept a drop of fluid despite aspiration with no blood; so an additional access site was chosen in the right upper quadrant near the midline. Once appropriate aspiration and irrigation revealed low-pressure insufflation, insufflation was initiated at low-flow. Appropriate intraabdominal pressures were obtained and high-flow insufflation was then initiated. Her abdomen was then distended to 15 mmHg of pressure and did distend appropriately. I then marked standard triangulation for a laparoscopic radical nephrectomy using a right super umbilical incision site, a midline subxiphoid incision, and a right lateral quadrant incision site. The camera port was then placed optically into the abdominal cavity. The Veress needle was then removed after surveying the abdominal contents for injury. There was a small puncture in the anterior lobe of the liver, which was occupying her entire upper abdomen atypically, but the site was clotted and not bleeding; so it was not further addressed. I then turned my attention to the right lateral quadrant and a 12 mm trocar was then placed under direct vision. Utilizing the right lateral quadrant trocar, I looked back at the optically-placed periumbilical trocar and positioned it so the tip was ~1cm beyond the fascia within the peritoneum. I then placed a 12 mm trocar in the anterior midline. A liver retractor was placed in the left upper quadrant beneath the diaphragm and the liver was elevated. Because the liver was excessively large and floppy and did occupy a significant portion of her anterior abdomen down to the umbilicus, the 12 mm trocar inserted in the anterior midline was insufficient for working access into the abdominal cavity as it overlaid the liver. As a result, I placed an additional 5 mm trocar near the anterior midline just medial to the liver retractor trocar site. Then using the 3 working ports, the 12 mm camera port in the midline, the 12 mm working port in the right lateral quadrant and the 5 mm port in the left upper quadrant, I then identified the duodenum and the kidney sitting in the right upper quadrant. I divided the peritoneum overlying the junction between the upper border of the duodenum and the medial border of the kidney and took that laterally toward the sidewall of the abdomen. I then further lysed the peritoneum overlying the duodenum inferiorly releasing the colon via the line of Toldt. The ureter and the gonadal vessels were then quickly visualized along with some dilated periureteral vessels. This was carefully dissected and the ureter was elevated. The gonadal vein was ligated due to its tortuosity and risk of bleeding using hemoclips placed proximally at the junction with the IVC. It was then divided, and I was able to further elevate the ureter and used the LigaSure to divide some of the other tortuous vessels surrounding the ureter. I was then able to progress beneath the ureter and along the IVC toward the renal vein. Once the border of the renal vein was identified, I then dissected beneath the renal vein to identify the renal artery. The renal artery was then ligated and divided using a CRISTOPHER stapler, and then I dissected proximal and superior to the renal vein identifying the adrenal on the right side, which was uninvolved. Once the renal vein was completely exposed, I utilized the suction time motion analyst to elevate the kidney and attempt to distribute the tumor thrombus more toward the intrarenal side and away from the junction with the IVC. I then employed a CRISTOPHER stapler very low on to the renal vein at the junction with the IVC, even potentially collapsing a small portion of the IVC in order to ligate and divide the renal vein and ensure a negative margin with removal of the tumor thrombus. Once the renal vasculature was divided, I then used the ligature to complete the dissection superiorly and then turned my attention inferiorly dividing the ureter after ligating it with hemoclips. The remainder of the posterior and lateral attachments were then all divided using ligature cautery, and the kidney, now freed, was placed into a 15 cm EndoCatch bag. I then turned my attention to the posterior midline and extended the supraumbilical camera port incision inferiorly around the umbilicus and beneath the umbilicus approximately 4 or 5 cm for a total of about 8 cm incision. This was deepened through the subcutaneous tissues using electrocautery and down to the level of the fascia. The fascia was divided sharply using electrocautery and the peritoneum was then divided. The kidney was then delivered from inside the abdominal cavity within the EndoCatch bag and was sent for pathologic analysis. Jose clamps were applied and the fascia was closed using #1 PDS in a running fashion suturing from inferior to the midportion of the incision and from superior down to the midportion of the incision tying the sutures in between. We then turned our attention back to reinsufflate the abdomen using the 5 mm trocar present within the left upper quadrant. Александр-Tip closure using 0 Vicryl suture had already been performed of the 12 mm anterior midline trocar site prior to opening to remove the specimen. The camera was then inserted via the right lateral quadrant trocar site and the liver was elevated using the suction time motion analyst and direct visualization of the renal vessels was undertaken. The pressure was decreased to 8 mmHg, and the artery and the vein stapled were intact without any sign of any bleeding. As such, a Александр-Tip closure was then performed of the right lateral quadrant trocar site using a 0 Vicryl suture and the abdomen was then desufflated and the 5 mm trocar was removed. The Александр-Tip closure sites in the anterior midline and the right lateral quadrant were then tied and closed, and all of the incision sites were copiously irrigated using saline. A bit of reconstruction around the umbilicus was performed using 3-0 Vicryl in the subcutaneous tissues and the skin was closed at all of the sites using 4-0 Monocryl suture. The skin was then sealed using Dermabond, and the patient was taken out of the modified decubitus position. She was placed supine on the operative table and extubated from general anesthesia with the orogastric tube removed simultaneously. She was then transferred to a stretcher and then transferred to the recovery room in good condition. Complications: None. Discharge Disposition: She will ambulate later this evening at least once before bedtime as DVT prophylaxis and continue with SCD application. Tomorrow morning, we will provide her with milk of magnesia and a Dulcolax suppository to promote bowel motility and reassess her laboratory values as well as a renal function. Should her renal function remain stable and she have recovery of bowel function with the passage of flatus as well as the ability to ambulate, she would then be eligible for discharge home. Subsequent followup should be established within 7-14 days with me in the Urology Clinic. At that time, we will review the pathologic result of the specimen removed. MARTA/MODL Voice ID: [id number] Report ID: [id number]
[2021-03-02] MEDS: Ringers Lactate 1,000 ML IV SCH ×4 (00:40→18:43)
[2021-03-02 05:32] LABS: Absolute Lymphocytes (CBC) 1.2 K/uL (0.7-4.9); Basophils % 0.4 % (0-1.3); Hematocrit 27.6 % (36.0-45.0); Lymphocytes % 16.6 % (15.3-44.8); MPV 7.6 fL (7.6-11.3); RBC Red Blood Cell Count 2.82 M/uL (3.86-4.86)
[2021-03-02 05:56] LABS: Potassium 4.2 mmol/L (3.5-5.1)
[2021-03-02] MEDS ORDERED: MAGNESIUM HYDROXIDE 8% 30 ML PO SCH (08:00)
[2021-03-02] MEDS ORDERED: KETOROLAC 30 MG/ML INJ IV ONE (08:02)
[2021-03-02] MEDS: NICOTINE 14 MG/PAT TD SCH ×2 (08:18→08:20)
[2021-03-02] MEDS: FLUOXETINE 10 MG CAP PO SCH (08:18)
[2021-03-02] MEDS: AMLODIPINE 10 MG TAB PO SCH ×2 (08:19→22:13)
[2021-03-02] MEDS: ENSURE ENLIVE 237 ML CAN PO SCH ×2 (08:19→20:58)
[2021-03-02] MEDS ORDERED: BISACODYL 10 MG RECTAL SUPP PR SCH (09:00)
[2021-03-02] MEDS ORDERED: KETOROLAC 30 MG/ML INJ IV SCH (12:00)
--- NOTE | 2021-03-02 12:38 | P.PN ---
Subjective Date of Service: 03/02/21 Primary Care Provider: Dr. Ibanez Chief Complaint: POD#1 s/p right lap radical nephrectomy Subjective: Improving While she notes some improvement in her pain control today, she still complains of significant pain. She was able to make it OOB to a chair, but she has yet to ambulate. She is tolerating clears without issue. She denies N/V. The BINDERY MACHINE SETTER is managing her pain, but she feels she needs to use it every 20 minutes. Physical Examination - Vital Signs Temperature: 97.4 F Blood Pressure: 108/54 Pulse: 72 Respirations: 16 Pulse Ox (%): 95 - Physical Exam General: Alert, In no apparent distress, Cooperative Respiratory: Normal air movement Cardiovascular: Normal pulses Gastrointestinal: Soft and benign, Other, Tenderness Integumentary: Other (Appropriately tender abdomen. Incisions C/D/I.) Assessment And Plan - Current Problems (Diagnosis) (1) S/P laparoscopic surgery Current Visit: Yes Status: Acute (2) S/p nephrectomy Current Visit: Yes Status: Acute (3) Renal mass Current Visit: Yes Status: Acute Physician Review Additional Text: 60yo woman s/p right laparoscopic radical nephrectomy for central renal mass with renal vein tumor thrombus without visible evidence of metastatic disease, POD#1. - d/c Corado catheter once pain controlled better - Ambulate QID with assist - Toradol 30mg IV x 1 now then Toradol 15mg IV q6h scheduled - MOM + Dulcolax - while I suspect the decline in her Hgb is dilutional from the IVFs, will repeat CBC to assess for potential for intraabdominal bleeding potentially underlying her significant abdominal pain, which is a bit atypical but relative to her prior pain management needs, is not outside of her prior. Critical Care: No
[2021-03-02] MEDS: KETOROLAC 30 MG/ML INJ IV SCH ×2 (14:00→20:00)
--- NOTE | 2021-03-02 14:12 | P.PN ---
Subjective Date of Service: 03/02/21 Primary Care Provider: Dr. Ibanez Chief Complaint: POD#1 s/p right lap radical nephrectomy Subjective: Other (No nausea or vomiting. Reports pain to the abdomen.) Physical Examination - Vital Signs Temperature: 97.4 F Blood Pressure: 108/54 Pulse: 72 Respirations: 16 Pulse Ox (%): 95 Assessment & Plan Discharge Plan: Home Plan to discharge in: Greater than 2 days Physician Review Additional Text: Physical: Patient alert, cooperative. Reports pain to the abdomen. She is on a ADMINISTRATION MANAGER pump. H: regular rate L: Clear to auscultation AB: post surgical changes noted. Post surgical pain expected. EXT: Good range of motion, No focal deficits. Impression: Right flank pain secondary to irregular mass lesion involving the posterior mid right kidney with extension into the right hilum, neoplastic process is likely status post right laparascopic radical nephrectomy without visible evidence of metastatic disease, POD #1 Small amount of thrombus in the right renal vein and near the hepatic hilum Hypertension Depression THC use Anemia post op likely dilutional Plan: Right flank pain secondary to irregular mass lesion involving the posterior mid right kidney with extension into the right hilum, neoplastic process is likely status post right laparascopic radical nephrectomy without visible evidence of metastatic disease, POD #1: Patient doing well post op. She is on ADMINISTRATION MANAGER pump. Encourage ambulation and incentive spirometer. Surgery to adjust pain medication. Surgery plans to DC elaine once pain is better. Surgery to provide stool softner. H/H likely dilutional related. Surgery plan to recheck lab. Will discuss further with Urology. Await pathology. Home in the next 3 days. Small amount of thrombus in the right renal vein and near the hepatic hilum: No need for anticoagulation but will check with Urology on when we can start DVT prophylaxis. Hypertension: Continue medication. Parameters in place Depression: Continue medication. THC: Cessation education will be provided Anemia post op likely dilutional: Will recheck Lab. Time Spent Managing Pts Care (In Minutes): 55
[2021-03-02 14:27] LABS: Hematocrit 33.6 % (36.0-45.0); MPV 7.6 fL (7.6-11.3); RBC Red Blood Cell Count 3.41 M/uL (3.86-4.86)
[2021-03-02] MEDS: PANTOPRAZOLE 40MG TABLET PO SCH (14:32)
[2021-03-02] MEDS ORDERED: PANTOPRAZOLE 40MG TABLET PO SCH (16:30)
[2021-03-02] MEDS ORDERED: BISACODYL E.C. 5 MG TAB PO ONE (18:00)
[2021-03-02] MEDS ORDERED: MAGNESIUM HYDROXIDE 8% 30 ML PO ONE (18:00)
[2021-03-02] MEDS: TRAZODONE 50 MG TABLET PO SCH (20:53)
[2021-03-02] MEDS: LORAZEPAM 0.5 MG TABLET PO PRN (21:03)
[2021-03-03] MEDS: KETOROLAC 30 MG/ML INJ IV SCH ×3 (02:00→14:00)
[2021-03-03] MEDS: Ringers Lactate 1,000 ML IV SCH (05:25)
--- NOTE | 2021-03-03 05:31 | P.PN ---
Date of Service: 02/24/21 Subjective Subjective: Patient is clinically still having some pain. Patient has a large renal mass most likely renal cell carcinoma as seen on CT scan. Patient does have renal vein thrombus as well. Await urology input Review of Systems 10-point ROS is otherwise unremarkable Physical Examination - Vital Signs Reviewed - Physical Exam General: Alert, In no apparent distress, Oriented x3 Respiratory: Clear to auscultation bilaterally, Normal air movement Cardiovascular: Regular rate/rhythm, Normal S1 S2 Gastrointestinal: Normal bowel sounds, Soft and benign, Non-distended Musculoskeletal: No clubbing, No swelling Neurological: Normal strength at 5/5 x4 extr, Normal tone, Sensation intact, Cranial nerves 3-12 intact Assessment & Plan - Problems (Diagnosis) (1) Renal mass Current Visit: Yes Status: Acute (2) Depression Current Visit: Yes Status: Chronic Qualifiers: Depression Type: unspecified Qualified Code(s): F32.9 - Major depressive disorder, single episode, unspecified (3) HTN (hypertension) Current Visit: Yes Status: Chronic Qualifiers: Hypertension type: essential hypertension Qualified Code(s): I10 - Essential (primary) hypertension - Plan Plan: 1. Urology consultation pending 2. Continue with pain control 3. Heparin drip 4. Out of bed and ambulate 5. Hold off on antidepressant at this time 6. GI and DVT prophylaxis
[2021-03-03 06:12] LABS: Absolute Lymphocytes (CBC) 1.4 K/uL (0.7-4.9); Basophils % 0.8 % (0-1.3); Hematocrit 35.9 % (36.0-45.0); Lymphocytes % 18.1 % (15.3-44.8); MPV 7.7 fL (7.6-11.3); RBC Red Blood Cell Count 3.69 M/uL (3.86-4.86)
[2021-03-03] MEDS: FLUOXETINE 10 MG CAP PO SCH (09:00)
[2021-03-03] MEDS: NICOTINE 14 MG/PAT TD SCH (09:00)
[2021-03-03 11:13] LABS: Blood Morphology Comment NOT SEEN (NOT SEEN); Platelet Estimate ADEQ; White Blood Cell Scan OK (OK)
[2021-03-03] MEDS: PANTOPRAZOLE 40MG TABLET PO SCH (11:27)
[2021-03-03] MEDS: ENSURE ENLIVE 237 ML CAN PO SCH ×2 (11:28→21:06)
[2021-03-03] MEDS ORDERED: Ringers Lactate 1,000 ML IV SCH (14:13)
[2021-03-03] MEDS ORDERED: BISACODYL E.C. 5 MG TAB PO ONE (14:14)
[2021-03-03] MEDS ORDERED: MAGNESIUM HYDROXIDE 8% 30 ML PO ONE (14:14)
[2021-03-03] MEDS ORDERED: IPRATROPIUM BROM 0.5MG/2.5ML NEB PRN (14:14)
--- NOTE | 2021-03-03 14:19 | P.PN ---
Subjective Date of Service: 03/03/21 Primary Care Provider: Dr. Ibanez Chief Complaint: POD#1 s/p right lap radical nephrectomy Subjective: Improving, Other (Off room air. Less pain noted.) Physical Examination - Vital Signs Temperature: 99.3 F Blood Pressure: 133/65 Pulse: 96 Respirations: 16 Pulse Ox (%): 94 Assessment & Plan Discharge Plan: Home Plan to discharge in: 24 Hours Physician Review Additional Text: Physical: Pain improved. Off room air. H: regular rate L: Clear to auscultation AB: post surgical changes noted. Post surgical pain expected. EXT: Good range of motion, No focal deficits. Impression: Right flank pain secondary to irregular mass lesion involving the posterior mid right kidney with extension into the right hilum, neoplastic process is likely status post right laparascopic radical nephrectomy without visible evidence of metastatic disease, POD #2 Small amount of thrombus in the right renal vein and near the hepatic hilum Hypertension Depression THC use Anemia post op likely dilutional Tobacco abuse with suspected COPD Plan: Right flank pain secondary to irregular mass lesion involving the posterior mid right kidney with extension into the right hilum, neoplastic process is likely status post right laparascopic radical nephrectomy without visible evidence of metastatic disease, POD #2: Patient doing well postoperatively. Surgery continues to adjust medication. Continue to wean off HEAD TRACK COACH pump. Discussed case with surgery. We will give another round of Dulcolax and milk of magnesia. Encourage ambulation. Encourage incentive spirometer. Patient with history of tobacco abuse. Suspect underlying COPD. Will start COPD medication. Anticipate improvement over the next 24 hours with possible discharge as early as tomorrow. Small amount of thrombus in the right renal vein and near the hepatic hilum: Continue with DVT prophylaxis Hypertension: Continue medication. Parameters in place Depression: Continue medication. THC: Cessation education will be provided Anemia post op likely dilutional: Will recheck Lab. Tobacco abuse with suspected COPD: We will start medication. Time Spent Managing Pts Care (In Minutes): 55
[2021-03-03] MEDS ORDERED: KETOROLAC 30 MG/ML INJ IV PRN (18:51)
[2021-03-03] MEDS: ARFORMOTEROL TARTRATE 15 MCG/2 ML VIAL.NEB NEB SCH (20:35)
[2021-03-03] MEDS ORDERED: FLUOXETINE 10 MG CAP PO SCH (21:00)
[2021-03-03] MEDS: TRAZODONE 50 MG TABLET PO SCH (21:05)
[2021-03-03] MEDS: LORAZEPAM 0.5 MG TABLET PO PRN (21:29)
[2021-03-04] MEDS: OXYCODONE HCL 5 MG TAB PO PRN ×2 (04:06→13:28)
[2021-03-04 07:30] LABS: Potassium 4.1 mmol/L (3.5-5.1)
[2021-03-04 07:32] LABS: Absolute Lymphocytes (CBC) 1.5 K/uL (0.7-4.9); Basophils % 1.1 % (0-1.3); Lymphocytes % 19.3 % (15.3-44.8); MPV 7.7 fL (7.6-11.3); RBC Red Blood Cell Count 3.53 M/uL (3.86-4.86)
[2021-03-04] MEDS: ARFORMOTEROL TARTRATE 15 MCG/2 ML VIAL.NEB NEB SCH (08:50)
[2021-03-04] MEDS: AMLODIPINE 10 MG TAB PO SCH (08:55)
[2021-03-04] MEDS: PANTOPRAZOLE 40MG TABLET PO SCH (08:56)
[2021-03-04] MEDS: ENSURE ENLIVE 237 ML CAN PO SCH (08:59)
[2021-03-04] MEDS: NICOTINE 14 MG/PAT TD SCH (08:59)
[2021-03-04 10:29] VITALS: O2SAT 94
--- NOTE | 2021-03-04 13:35 | P.DS ---
Admission Date: 02/23/21 Discharge Date: 03/04/21 Primary Care Provider: Dr. Ibanez Disposition: ROUTINE DISCHARGE Discharge Condition: GOOD Reason for Admission: Abdominal pain Consultations: Urology-Dr. Barker Procedures: COVID: Negative CT scan: FINDINGS: Thoracic: Small bilateral fat-containing Bochdalek hernias. Hepatobiliary: Tiny hypodensity along the lateral of the right hepatic lobe measures 0.8 cm, possibly a cyst or benign hemangioma. No concerning hepatic lesion identified. The hepatic and portal veins are patent. The gallbladder is unremarkable. No biliary ductal dilatation. Pancreas: Unremarkable. Spleen: Unremarkable. Gastrointestinal: No evidence of bowel obstruction or perienteric inflammation. The appendix is normal. Adrenals: No abnormality identified in either adrenal gland. Renal: Right interpolar renal mass measures 4.2 x 4.6 x 5.1 cm centered in the renal sinus. No extension beyond the renal capsule. There is tumor thrombus extending into the right renal vein by 2.1 cm. No thrombus identified IVC. The single right renal artery is patent. No hydronephrosis or urolithiasis. Bladder/Reproductive: Unremarkable appearance of the urinary bladder by CT technique. Vascular/Lymphatics: No lymphadenopathy identified by CT size criteria. Abdominal aorta is normal in caliber. Moderate atherosclerosis. The major visceral vessels are patent. Musculoskeletal: No concerning osseous lesion identified. Osteopenia. L5-S1 disc and endplate degenerative changes. Mild anterior wedge compression deformity at L4. Fluid / peritoneum: No significant free fluid. No free intraperitoneal air identified. IMPRESSION Large right renal mass centered in the renal sinus with tumor thrombus extending into the right renal vein by 2.1 cm. No IVC thrombus identified. Findings are concerning for malignancy until proven otherwise. CT Head: FINDINGS: No intracranial hemorrhage, hydrocephalus or extra-axial fluid collection.No areas of brain edema or evidence of midline shift. Post-contrast sequences shows no pathologic enhancement. The paranasal sinuses and mastoids are clear. The calvarium is intact. IMPRESSION: No findings suspicious for intracranial metastasis. If there is continued clinical concern for intracranial metastatic disease. CT Chest: FINDINGS: Several subtle vague ground-glass area of nodularity seen subpleural location of the upper lobes. These are not typical nodules seen in cases of metastatic disease. Surveillance imaging the nodules may be considered. No pleural thickening or pleural effusion. No pneumothorax. No axillary, mediastinal or hilar adenopathy. No lytic or blastic bone lesion. No gross upper abdominal finding. All CT scans are performed using dose optimization technique as appropriate and may include automated exposure control or mA/KV adjustment according to patient size. IMPRESSION: Several vague small ground-glass areas of nodularity in a subpleural location both upper lobes is low suspicion for metastatic disease.Suggest followup surveillance CT chest in 3 months. MRI Abdomen: FINDINGS: There is an irregular mass lesion involving the posterior aspect of the mid right kidney measuring 43 x 38 mm. The mass appears to extend into the right renal pelvis. The proximal right renal vein shows a small amount of tumor thrombus. The thrombus does not appear to extend into the vena cava. The left kidney appears unremarkable. The visualize aspects the appears old organs appear without aggressive abnormality. No bulky adenopathy in the abdomen. IMPRESSION: Irregular mass lesion involving the posterior mid right kidney with extension into the renal hilum. Neoplastic process is the most likely etiology. There is a small amount of thrombus in the right renal vein and near the hepatic hilum. No thrombus seen in the vena cava. Surgery: Date: 02/20/21 Surgeon: NEMESIO BARKER Preoperative Diagnoses: 1. Right centrally located renal mass. 2. Renal vein tumor thrombus extension. Postoperative Diagnoses: 1. Right centrally located renal mass. 2. Renal vein tumor thrombus extension. Principle Procedure: Right laparoscopic radical nephrectomy. Surgical Pathology: DIAGNOSIS Right kidney, right radical nephrectomy: - Clear cell renal cell carcinoma, histologic grade 2 (tumor size: 5.2 cm) - Tumor involves the renal sinus and renal vein - Margins uninvolved by invasive carcinoma Surgical Pathology Cancer Case Summary - Procedure: Radical Nephrectomy - Specimen laterality: Right - Tumor size: Greatest dimension: 5.2 cm - Tumor focality: Unifocal - Histologic Type: Clear cell renal cell carcinoma - Sarcomatoid features: Not identified - Rhabdoid features: Not identified - Histologic grade: Grade 2 - Tumor necrosis: Not identified - Tumor extension: Tumor extension into renal sinus and into renal vein - Margins: Uninvolved by invasive carcinoma - Regional lymph nodes: No lymph nodes submitted or found - Pathologic stage (pTNM): - Primary tumor (pT): pT3a - Regional lymph nodes (pN): pNX - Pathologic findings in nonneoplastic kidney: Not identified Dictated by: Ros Camara MD CLINICAL HISTORY Pre-op Diagnosis: Right renal mass, hematuria. Post-op Diagnosis: Same. GROSS DESCRIPTION The case is received in one part, labeled with the patient's name "Mary Zhang" and accession #[id number] accompanied by a requisition slip labeled with the patient's name and the same accession number. The specimen is received in formalin, labeled "right kidney" and consists of a right radical nephrectomy specimen weighing 287 grams and measuring 15 x 9 x 5 cm in total. The attached ureter measures 8 cm in length. There is a portion of possible vascular tissue adjacent to the distal ureter margin that contains blood and measures 3.5 cm in length. The outer surface of the kidney is inked black and the specimen is bivalved and fixed overnight. The renal vein margin at the hilum appears negative. The renal vein at the hilum measures approximately 1.5 cm in length. There is tumor within the renal vein that is approximately 1 cm from the margin grossly. The kidney tumor is located centrally in the renal sinus area and measures 5.2 x 4.2 x 4.5 cm. The tumor is yellow with the appearance of renal cell carcinoma. No significant necrosis is seen. The tumor appears to involve the renal sinus fat grossly. The tumor does not appear to involve the perinephric fat or Gerotas fascia. The tumor is approximately 1.2 cm from the inked outer surface. The adrenal gland is not identified. Perihilar lymph nodes are not identified. The uninvolved kidney appears unremarkable. Commercial Relationship Manager sections are submitted in fourteen cassettes as follows: 1 possible vascular tissue near distal ureter; 2 blood within possible vascular tissue near distal ureter; 3 ureter margin; 4 renal vein margin at hilum; 5 renal artery margin at hilum; 6 renal vein with tumor thrombus; 7 through 9 help desk representative tumor near the renal sinus fat; 10 tumor including perirenal fat; 11 tumor including Gerotas fascia; 12,13 additional random tumor; 14 random uninvolved kidney. (ASW) Microscopic description: Sections show clear cell renal cell carcinoma composed of sheets and nests of clear cells, histologic grade 2. No significant necrosis is seen. The tumor appears to involve the renal sinus adipose tissue and involves the renal vein. The tumor does not involve the perirenal adipose tissue or Gerotas fascia. The renal vein, renal artery and ureter margins are negative. Urine Pathology: - No malignant cells identified Medical Problem List: Right flank pain secondary to irregular mass lesion involving the posterior mid right kidney with extension into the right hilum, pathology showing clear cell renal cell carcinoma status post right laparascopic radical nephrectomy without visible evidence of metastatic disease Small amount of thrombus in the right renal vein and near the hepatic hilum Hypertension Depression THC use Anemia post op likely dilutional Tobacco abuse COPD Brief History of Present Illness: 60 yo female with HTN, depression, COPD presenting with 1 week of right lower quadrant and right flank pain. She also reports pressure when she urinates. Her PCP tested her urine and told her it was positive for blood and sent her to the ER for possible UTI. She has had recurrent UTIs in the past but normally with those she has pain over her bladder. She reports anorexia, night sweats, chills, nausea, polyuria, weight loss of 17lb since November. She denies hematuria, hematochezia, melena, vomiting. She had some relief of the pain with advil PM. She smokes 1ppd. CT shows large right renal mass centered in the renal sinus with tumor thrombus extending into the right renal vein by 2.1cm. No IVC thrombus identified. Findings are concerning for malignancy until proven otherwise. Patient was admitted for further evaluation and treatment. Hospital Course: Patient presented with right flank pain this was secondary to an irregular mass lesion involving the posterior mid right kidney with extension into the right hilum. Patient was admitted for further evaluation. Small thrombus also noted in the right renal vein. Urology was consulted. Urological intervention was required. Patient had right laparoscopic radical nephrectomy without visible evidence of metastatic disease. Pathology showed clear cell renal cell carcinoma. Patient did well postoperatively. Patient without any significant complaints. Pain well controlled with medication. Patient able to have a bowel movement. Patient tolerating diet. At discharge the patient will continue with ibuprofen 400 mg 3 times a day as needed for pain. A limited supply of Percocet 5/325 mg 1 pill twice daily for significant pain will be used as needed. Patient will follow up with urology in 1 to 2 weeks to follow-up hospitalization. Encourage oral intake. Patient will also be provided Senokot daily as a stool softener. Patient may use MiraLAX as needed for constipation. If with increase pain, fever, she is to contact urology for further recommendation or go to the emergency room. No need for anticoagulation therapy at discharge. At discharge will recommend to continue aspirin 81 mg daily. Postop care provided. Patient with hypertension. This has remained stable. At discharge she will continue with Norvasc 10 mg daily. Recommend to maintain blood pressure less than 130/80. Further adjustment can be done by her PCP. Patient with depression. At discharge she will continue with her medications including Prozac 10 mg daily, Ativan 0.5 mg twice daily as needed for anxiety and trazodone 50 mg at bedtime. Patient with tobacco and THC use. Cessation education provided. Patient likely with underlying COPD. Medication was initiated during the course of her stay. At discharge she will continue with air duo 1 puff twice daily and albuterol 2 puffs 3 times a day as needed for shortness of breath. Patient may follow-up with her PCP to further address and monitor. Vital Signs/Physical Exam: Temp Pulse Resp BP Pulse Ox 99.9 F 104 H 18 140/67 94 03/04/21 12:00 03/04/21 12:00 03/04/21 12:00 03/04/21 12:00 03/04/21 12:00 General: Alert, In no apparent distress, Oriented x3, Cooperative HEENT: Atraumatic Neck: Supple Respiratory: Clear to auscultation bilaterally, Normal air movement Cardiovascular: Normal pulses, Regular rate/rhythm Gastrointestinal: Normal bowel sounds, Soft and benign, Non-distended, No tenderness, No masses, No rebound, No guarding Musculoskeletal: No erythema, No tenderness, No warmth Neurological: Normal speech, Normal strength at 5/5 x4 extr, Normal tone, Normal affect Laboratory Data at Discharge: WBC 7.90 K/uL (4.3-10.9) 03/04/21 07:05 Hgb 11.4 g/dL (12.0-15.0) L 03/04/21 07:05 Hct 34.0 % (36.0-45.0) L 03/04/21 07:05 Plt Count 326 K/uL (152-406) 03/04/21 07:05 PT 10.6 SECONDS (9.5-12.5) 03/01/21 09:08 INR 0.92 03/01/21 09:08 APTT 34.4 SECONDS (24.3-36.9) 03/01/21 09:08 Sodium 140 mmol/L (136-145) 03/04/21 07:05 Potassium 4.1 mmol/L (3.5-5.1) 03/04/21 07:05 BUN 5 mg/dL (7-18) L 03/04/21 07:05 Creatinine 0.99 mg/dL (0.55-1.3) 03/04/21 07:05 Glucose 93 mg/dL (74-106) 03/04/21 07:05 Magnesium 2.5 mg/dL (1.8-2.4) H 03/01/21 05:27 Total Bilirubin 0.2 mg/dL (0.2-1.0) 02/26/21 03:33 AST 33 U/L (15-37) 02/26/21 03:33 ALT 65 U/L (12-78) 02/26/21 03:33 Alkaline Phosphatase 71 U/L (45-117) 02/26/21 03:33 Home Medications: Fluoxetine HCl [Prozac*] 10 mg PO DAILY 02/24/21 LORazepam [Ativan*] 0.5 mg PO BID PRN 02/24/21 Trazodone [Desyrel*] 50 mg PO BEDTIME 02/24/21 Albuterol Inhaler [Ventolin Inhaler*] 2 puff IH TID PRN #1 hfa.aer.ad 03/04/21 Amlodipine [Norvasc*] 10 mg PO DAILY #30 tab 03/04/21 Aspirin [Aspirin EC 81 MG] 81 mg PO DAILY #90 tablet. 03/04/21 Desmond Enlive 237 ml PO BID #60 can 03/04/21 Fluticasone Propion/Salmeterol [Airduo Digihaler 113-14 Mcg] 1 each IH BID #1 aer.pw.bas 03/04/21 Oxycodone HCl/Acetaminophen [Percocet 5-325 mg Tablet] 1 each PO BID PRN #15 tablet 03/04/21 Polyethylene Glycol 3350 [Miralax] 17 gm PO DAILY PRN #3 powd.pack 03/04/21 Senosides [Senokot] 1 tab PO DAILY #30 tab 03/04/21 New Medications: Fluticasone Propion/Salmeterol [Airduo Digihaler 113-14 Mcg] 1 each IH BID #1 aer.pw.bas Aspirin [Aspirin EC 81 MG] 81 mg PO DAILY #90 tablet.dr Logan Enlive 237 ml PO BID #60 can Polyethylene Glycol 3350 [Miralax] 17 gm PO DAILY PRN #3 powd.pack PRN Reason: Constipation Amlodipine [Norvasc*] 10 mg PO DAILY #30 tab Oxycodone HCl/Acetaminophen [Percocet 5-325 mg Tablet] 1 each PO BID PRN #15 tablet PRN Reason: Pain Scale 5-7 (Moderate) Senosides [Senokot] 1 tab PO DAILY #30 tab Albuterol Inhaler [Ventolin Inhaler*] 2 puff IH TID PRN #1 hfa.aer.ad PRN Reason: Shortness Of Breath Physician Discharge Instructions: Patient presented with right flank pain this was secondary to an irregular mass lesion involving the posterior mid right kidney with extension into the right hilum. Patient was admitted for further evaluation. Small thrombus also noted in the right renal vein. Urology was consulted. Urological intervention was required. Patient had right laparoscopic radical nephrectomy without visible evidence of metastatic disease. Pathology showed clear cell renal cell carcinoma. Patient did well postoperatively. Patient without any significant complaints. Pain well controlled with medication. Patient able to have a bowel movement. Patient tolerating diet. At discharge the patient will continue with ibuprofen 400 mg 3 times a day as needed for pain. A limited supply of Percocet 5/325 mg 1 pill twice daily for significant pain will be used as needed. Patient will follow up with urology in 1 to 2 weeks to follow-up hospitalization. Encourage oral intake. Patient will also be provided Senokot daily as a stool softener. Patient may use MiraLAX as needed for constipation. If with increase pain, fever, she is to contact urology for further recommendation or go to the emergency room. No need for anticoagulation therapy at discharge. At discharge will recommend to continue aspirin 81 mg daily. Postop care provided. Patient with hypertension. This has remained stable. At discharge she will continue with Norvasc 10 mg daily. Recommend to maintain blood pressure less than 130/80. Further adjustment can be done by her PCP. Patient with depression. At discharge she will continue with her medications including Prozac 10 mg daily, Ativan 0.5 mg twice daily as needed for anxiety and trazodone 50 mg at bedtime. Patient with tobacco and THC use. Cessation education provided. Patient likely with underlying COPD. Medication was initiated during the course of her stay. At discharge she will continue with air duo 1 puff twice daily and albuterol 2 puffs 3 times a day as needed for shortness of breath. Patient may follow-up with her PCP to further address and monitor. Diet: AHA Activity: No lifting more than 10 lbs Followup: Paul Ibanez PA [Primary Care Provider] - Time spent managing pt's care (in minutes): 55
[2021-03-04 17:31] VITALS: BP 163/66; TEMP 97
== END 2021-03-04 16:34 | disposition home or self-care (01) | DRG 657 ==
LOC: ER 17:40 → ERHOLD 02-23 22:56 → 4TH 02-24 07:51 → 2ND 02-27 20:07
PROVIDERS: ADMIT Hospitalist; ATTEND Family Medicine
PROC: 0TB04ZZ Excision of Right Kidney, Percutaneous Endoscopic Approach (ICD-10-PCS; principal; 2021-03-01 10:30)
DX: C64.1 Malignant neoplasm of right kidney, except renal pelvis (principal); I82.3 Embolism and thrombosis of renal vein; I82.890 Acute embolism and thrombosis of other specified veins; I10 Essential (primary) hypertension; F17.210 Nicotine dependence, cigarettes, uncomplicated; J44.9 Chronic obstructive pulmonary disease, unspecified; F32.9 Major depressive disorder, single episode, unspecified; D64.9 Anemia, unspecified; R31.29 Other microscopic hematuria; Z90.710 Acquired absence of both cervix and uterus; Z79.899 Other long term (current) drug therapy; Z79.82 Long term (current) use of aspirin; Z20.822 Contact with and (suspected) exposure to COVID-19
CPT/HCPCS: 36415; 71260; 74177; 80048; 80053; 80076; 80307; 80320; 80329; 81003; 81015; 83615; 83735; 84132; 84439; 84443; 85025; 85027; 85610; 85730; 86850; 86900; 86901; 88108; 88307; 93005; 94010; 94640; 94760; 96361; 96374; 96375; 99285; J0690; J1170; J1644; J2175; J2250; J2270; J2405; J2704; J2710; J3010; J7030; J7120; J7605; Q9967; U0003

== ENCOUNTER 2021-10-15 17:31 | Emergency (ER) | payer OTHER, SELFPAY ==
[2021-10-15] MEDS ORDERED: HYDROCODONE/APAP 5/325 MG TAB ONE (19:33)
--- NOTE | 2021-10-15 19:59 | RAD REPORT ---
EXAM DESCRIPTION: RAD - Forearm Right - 10/15/2021 7:30 pm CLINICAL HISTORY: PAIN COMPARISON: No comparisons FINDINGS: Transversely oriented fracture of the mid ulna with approximately 2/3 shaft width of maxim al displacement. No other fractures are identified. IMPRESSION: Mildly displaced mid ulnar diaphyseal fracture.
--- NOTE | 2021-10-15 20:04 | RAD REPORT ---
EXAM DESCRIPTION: RAD - Wrist Right 3 View - 10/15/2021 7:30 pm CLINICAL HISTORY: fall;Pain COMPARISON: No comparisons FINDINGS/IMPRESSION: No right wrist fracture. Re- demonstrated mid ulnar diaphyseal fracture. Degene rative changes are present at the STT joint.
--- NOTE | 2021-10-15 21:00 | EDPHYS ---
Physician Documentation [facility] Name: Mary Zhang Age: 61 yrs Sex: Female : 1960 Arrival Date: 10/15/2021 Time: 17:51 Bed Treatment Private MD: ED Physician Cisco Bedoya HPI: 10/15 19:31 This 61 yrs old Female presents to ER via Ambulatory with complaints of Fall Injury, mh7 Arm Injury. 19:31 Details of fall: The patient fell from an upright position, while standing, In shower, mh7 and struck Bathtub. Onset: The symptoms/episode began/occurred yesterday. Associated injuries: The patient sustained Right forearm. Severity of symptoms: At their worst the symptoms were moderate, last night, in the emergency department the symptoms have improved, mildly. Historical: - Allergies: 18:38 No Known Allergies; ss - Home Meds: 18:38 amlodipine 10 mg tab 1 tab once daily [Active]; fluoxetine 10 mg Oral cap 10 mg once ss daily [Active]; lorazepam 0.5 mg Oral tab 1 tab 2 times per day [Active]; trazodone 50 mg Oral tab 1 tab nightly [Active]; - PMHx: 18:38 Anxiety; Depression; Hypertension; ss - Immunization history:: Client reports having NOT received the Covid vaccine. - Social history:: Smoking status: Patient reports the use of cigarette tobacco products, smokes one pack cigarettes per day. ROS: 19:31 Constitutional: Negative for fever, chills, and weight loss, Eyes: Negative for injury, mh7 pain, redness, and discharge, ENT: Negative for injury, pain, and discharge, Neck: Negative for injury, pain, and swelling, Cardiovascular: Negative for chest pain, palpitations, and edema, Respiratory: Negative for shortness of breath, cough, wheezing, and pleuritic chest pain, Abdomen/GI: Negative for abdominal pain, nausea, vomiting, diarrhea, and constipation, Back: Negative for injury and pain, : Negative for injury, bleeding, discharge, and swelling, Skin: Negative for injury, rash, and discoloration, Neuro: Negative for headache, weakness, numbness, tingling, and seizure, Psych: Negative for depression, anxiety, suicide ideation, homicidal ideation, and hallucinations, Allergy/Immunology: Negative for hives, rash, and allergies, Endocrine: Negative for neck swelling, polydipsia, polyuria, polyphagia, and marked weight changes, Hematologic/Lymphatic: Negative for swollen nodes, abnormal bleeding, and unusual bruising. Exam: 19:31 Constitutional: This is a well developed, well nourished patient who is awake, alert, mh7 and in no acute distress. Head/Face: Normocephalic, atraumatic. Eyes: Pupils equal round and reactive to light, extra-ocular motions intact. Lids and lashes normal. Conjunctiva and sclera are non-icteric and not injected. Cornea within normal limits. Periorbital areas with no swelling, redness, or edema. Neck: Trachea midline, no thyromegaly or masses palpated, and no cervical lymphadenopathy. Supple, full range of motion without nuchal rigidity, or vertebral point tenderness. No Meningismus. Chest/axilla: Normal chest wall appearance and motion. Nontender with no deformity. No lesions are appreciated. Cardiovascular: Regular rate and rhythm with a normal S1 and S2. No gallops, murmurs, or rubs. Normal PMI, no JVD. No pulse deficits. Respiratory: Lungs have equal breath sounds bilaterally, clear to auscultation and percussion. No rales, rhonchi or wheezes noted. No increased work of breathing, no retractions or nasal flaring. Abdomen/GI: Soft, non-tender, with normal bowel sounds. No distension or tympany. No guarding or rebound. No evidence of tenderness throughout. Back: No spinal tenderness. No costovertebral tenderness. Full range of motion. Skin: Warm, dry with normal turgor. Normal color with no rashes, no lesions, and no evidence of cellulitis. 19:31 Neuro: Awake and alert, GCS 15, oriented to person, place, time, and situation. Cranial nerves II-XII grossly intact. Motor strength 5/5 in all extremities. Sensory grossly intact. Cerebellar exam normal. Normal gait. Psych: Awake, alert, with orientation to person, place and time. Behavior, mood, and affect are within normal limits. 19:31 Musculoskeletal/extremity: Extremities: noted in the Right forearm and wrist: abrasion, contusion, swelling, tenderness, ROM: limited active range of motion due to pain, in the Right forearm and wrist, limited passive range of motion due to pain, in the Right forearm or wrist, Circulation is intact in all extremities. Sensation intact. Compartment Syndrome exam of affected extremity: is normal. no numbness, no tingling, no sensation deficit, no palor, no weak pulses, Joints: the left wrist displays painful range of motion, swelling, tenderness, Weight bearing: able to fully bear weight, without difficulty, Tendon exam: specific tendon testing normal through active and passive range of motion Vital Signs: 18:35 Pulse 99; Resp 16; Temp 98.9(TE); Pulse Ox 96% on R/A; Weight 57.61 kg; Height 5 ft. 3 ss in. (160.02 cm); Pain 10/10; 18:39 BP 178 / 81; ss 18:35 Body Mass Index 22.50 (57.61 kg, 160.02 cm) ss Procedures: 21:03 Splinting: Splint applied to right arm using Orthoglass splint, applied by tech. nurse. [facility] Examined by me, post splint application: neurovascular intact, 2+ distal pulses palpable, brisk capillary refill noted, Patient tolerated well. MDM: 20:57 Differential diagnosis: abrasion, contusion, fracture. Data reviewed: vital signs, [facility] nurses notes, radiologic studies, plain films. Data interpreted: Pulse oximetry: on room air is 96 %. Interpretation: normal. Counseling: I had a detailed discussion with the patient and/or guardian regarding: the historical points, exam findings, and any diagnostic results supporting the discharge/admit diagnosis, the presence of at least one elevated blood pressure reading (>120/80) during this emergency department visit, radiology results, the need for outpatient follow up, a orthopedic surgeon, to return to the emergency department if symptoms worsen or persist or if there are any questions or concerns that arise at home. Response to treatment: the patient's symptoms have markedly improved after treatment. 20:59 Patient medically screened. [facility] 10/15 18:39 Order name: XRAY Wrist RIGHT 3 view; Complete Time: 20:18 10/15 18:39 Order name: XRAY Forearm RIGHT; Complete Time: 20:18 10/15 20:38 Order name: Splint; Complete Time: 20:59 [facility] 10/15 21:02 Order name: Sling; Complete Time: 21:13 [facility] Administered Medications: 19:37 Drug: [place] (HYDROcodone-acetaminophen) 5 mg-325 mg 1 tabs Route: PO; iw 21:13 Follow up: Response: No adverse reaction; Pain is decreased ss Disposition Summary: 10/15/21 20:59 Discharge Ordered Location: Home [facility] Problem: new [facility] Symptoms: have improved [facility] Condition: Stable [facility] Diagnosis - Ulna Shaft Fracture, Right [facility] Followup: [facility] - With: Private Physician - When: 1 - 2 days - Reason: Worsening of condition, Recheck today's complaints, Continuance of care, Re-evaluation by your physician Followup: [facility] - With: Clive Nunez MD - When: 1 - 2 days - Reason: Worsening of condition, Recheck today's complaints Discharge Instructions: - Discharge Summary Sheet [facility] - Ulnar Fracture [facility] - Cast or Splint Care, Adult, [id number] [facility] Forms: - Medication Reconciliation Form [facility] - Thank You Letter [facility] - Antibiotic Education [facility] - Prescription Opioid Use [facility] Prescriptions: - Tylenol-Codeine #3 300 mg-30 mg Oral - take 2 tablet by ORAL route every 6 hours As needed; 15 tablet; Refills: 0, 7 Product Selection Permitted Signatures: Dispatcher [employer] Jocelyn Veronica RN RN iw Smirch, Shelby, RN RN ss Holmes, Maurice, MD MD [facility]
--- NOTE | 2021-10-15 21:00 | ER ---
Nurse's Notes [facility] Name: Mary Zhang Age: 61 yrs Sex: Female : 1960 Arrival Date: 10/15/2021 Time: 17:51 Bed Treatment Private MD: Diagnosis: Ulna Shaft Fracture, Right Presentation: 10/15 18:35 Chief complaint: Patient states: Slipped in shower yesterday evening. Pt c/o wrist and ss forearm pain. Coronavirus screen: Client denies travel out of the [place] in the last 14 days. Ebola Screen: Patient denies exposure to infectious person. Patient denies travel to an Ebola-affected area in the 21 days before illness onset. Initial Sepsis Screen: Does the patient meet any 2 criteria? No. Patient's initial sepsis screen is negative. Does the patient have a suspected source of infection? No. Patient's initial sepsis screen is negative. Risk Assessment: Do you want to hurt yourself or someone else? Patient reports no desire to harm self or others. Onset of symptoms was October 14, 2021. 18:35 Method Of Arrival: Ambulatory ss 18:35 Acuity: JUDY 3 ss Historical: - Allergies: 18:38 No Known Allergies; ss - Home Meds: 18:38 amlodipine 10 mg tab 1 tab once daily [Active]; fluoxetine 10 mg Oral cap 10 mg once ss daily [Active]; lorazepam 0.5 mg Oral tab 1 tab 2 times per day [Active]; trazodone 50 mg Oral tab 1 tab nightly [Active]; - PMHx: 18:38 Anxiety; Depression; Hypertension; ss - Immunization history:: Client reports having NOT received the Covid vaccine. - Social history:: Smoking status: Patient reports the use of cigarette tobacco products, smokes one pack cigarettes per day. Screenin:49 Abuse screen: Denies threats or abuse. Denies injuries from another. Nutritional iw screening: No deficits noted. Tuberculosis screening: No symptoms or risk factors identified. Fall Risk Fall in past 12 months (25 points). Assessment: 19:49 General: Appears in no apparent distress. Behavior is calm, cooperative. Pain: iw Complains of pain in right hand and right arm. Neuro: Level of Consciousness is awake, alert, obeys commands, Oriented to person, place, time, situation, Moves all extremities. Full function. Cardiovascular: Patient's skin is warm and dry. Derm: Skin is intact, is fragile. Musculoskeletal: Range of motion: limited in right wrist. Vital Signs: 18:35 Pulse 99; Resp 16; Temp 98.9(TE); Pulse Ox 96% on R/A; Weight 57.61 kg; Height 5 ft. 3 ss in. (160.02 cm); Pain 10/10; 18:39 BP 178 / 81; ss 18:35 Body Mass Index 22.50 (57.61 kg, 160.02 cm) ED Course: 17:51 Patient arrived in ED. mr 18:38 Triage completed. ss 18:38 Arm band placed on left wrist. ss 18:38 Patient has correct armband on for positive identification. 19:20 Cisco Bedoya MD is Attending Physician. [facility] 19:29 XRAY Wrist RIGHT 3 view In Process Unspecified. EDAK 19:29 XRAY Forearm RIGHT In Process Unspecified. EDAK 19:31 Jocelyn Dennison, RENETTA is Primary Nurse. 20:58 Clive Nunez MD is Referral Physician. [facility] 20:59 Orthoglass splint: posterior long arm splint applied to the right arm. Sling applied to ds4 right arm. 21:13 No provider procedures requiring assistance completed. Patient did not have IV access ss during this emergency room visit. Administered Medications: 19:37 Drug: [place] (HYDROcodone-acetaminophen) 5 mg-325 mg 1 tabs Route: PO; iw 21:13 Follow up: Response: No adverse reaction; Pain is decreased Outcome: 20:59 Discharge ordered by . [facility] 21:13 Discharged to home ambulatory, with family. ss 21:13 Condition: good 21:13 Discharge instructions given to patient, family, Instructed on discharge instructions, follow up and referral plans. medication usage, Demonstrated understanding of instructions, follow-up care, Prescriptions given X 1. 21:14 Patient left the ED. Signatures: Dispatcher [employer] SERGIO Gregory Priscilla mr Jocelyn Dennison, RENETTA JACKSON Elise Yang RN RN Harpreet Rodriguez ds4 Cisco Bedoya MD MD [facility]
[2021-10-15 21:21] VITALS: TEMP 98.9; O2SAT 96
[2021-10-15 21:22] VITALS: BP 178/81
== END 2021-10-15 21:14 | disposition home or self-care (01) ==
LOC: ER 17:31
PROC: 2W3CX1Z Immobilization of Right Lower Arm using Splint (ICD-10-PCS; principal; 2021-10-15)
DX: S52.201A Unspecified fracture of shaft of right ulna, initial encounter for closed fracture (principal); W18.2XXA Fall in (into) shower or empty bathtub, initial encounter; Y93.E1 Activity, personal bathing and showering; I10 Essential (primary) hypertension; F41.8 Other specified anxiety disorders; F17.210 Nicotine dependence, cigarettes, uncomplicated
CPT/HCPCS: 99284

== ENCOUNTER 2022-03-04 22:21 | Emergency (ER) | payer OTHER ==
--- OUTSIDE RECORDS SUMMARY | 2022-03-04 22:24 | XMS REPORT | Continuity of Care Document ---
:1960 Author Organization [facility] t Address [address] [place] [address] Care Team Providers Name Role Phone PCP, DOES NOT HAVE A Primary Care Physician Unavailable JACOB GAYTAN Attending Clinician Unavailable Al Chow MD Attending Clinician Problems Condition Condition Condition Status Onset Resolution Last Treating Co mments Source Name Details Category Date Date Treatment Clinician Date No known No known Disease Unive rs active active ity of problems problems [facility] Allergies, Adverse Reactions, Alerts Allergy Allergy Status Severity Reaction(s) Onset Inactive Treating Comm ents Source Name Type Date Date Clinician NO KNOWN Drug Active [facility] ALLERGIE Class ity of [facility] Social History Social Habit Start Date Stop Date Quantity Comments Source Exposure to Not sure [facility] SARS-CoV-2 (event) Medica [facility] Branch Sex Assigned At [birth year] [facility] 00:00:00 00:00:00 [facility] Smoking Status Start Date Stop Date Source Unknown if ever smoked [facility] Medications Ordered Filled Start Stop Current Ordering Indication Dosage Frequency Signature Comments Components Source Medication Medication Date Date Medication? Clinician (SIG) Name Name No known 2020-11 No Univers medications 2-08 ity of 14:26: [address] Vital Signs Vital Name Observation Time Observation Value Comments Source Body weight 2021-10-25 16:48:00 [facility] 2021-10-25 16:48:00 21.97 kg/m2 [facility] Body temperature 2021-10-25 16:48:00 35.67 [facility] ers[facility] Body height 2021-10-25 16:48:00 161.3 cm [facility] Procedures This patient has no known procedures. Encounters Start End Encounter Admission Attending Care Care Encounter Source Date/Time Date/Time Type Type Clinicians Facility Department ID 2021-11-08 2021-11-08 Outpatient R LUCILA [facility] [id number] [facility] 10:30:00 10:30:00 SORAYA gonzalez [facility] 2021-10-25 2021-10-25 Office Geraldo [facility] [id number] [facility] 10:48:08 10:59:11 Visit [id number] [id number] AT [id number] [address] Results This patient has no known results.
[2022-03-04] MEDS ORDERED: ONDANSETRON 4 MG/2 ML VIAL ONE (22:54)
[2022-03-04] MEDS ORDERED: MORPHINE 4 MG/ML SYR ONE (22:54)
[2022-03-04 23:14] LABS: Hematocrit 36.7 % (36.0-45.0); Lymphocytes % 13.3 % (15.3-44.8); RBC Red Blood Cell Count 3.89 M/uL (3.86-4.86)
[2022-03-04 23:17] LABS: Protime INR 0.93
[2022-03-04 23:23] LABS: Potassium 4.1 mmol/L (3.5-5.1)
[2022-03-05] MEDS ORDERED: MORPHINE 4 MG/ML SYR ONE ×2 (00:09→01:16)
--- NOTE | 2022-03-05 02:02 | ER ---
Nurse's Notes [facility] Name: Mary Zhang Age: 61 yrs Sex: Female : 1960 Arrival Date: 03/04/2022 Time: 22:21 Bed 15 Private MD: Diagnosis: Fracture of upper end of humerus;Displaced transverse fracture of shaft of right radius, initial encounter for closed fracture;Fracture of fourth lumbar vertebra;Nondisplaced right pubic ramus fracture Presentation: 03/04 22:26 Chief complaint: Patient states: walking down the stairs of a 2nd story porch and I jb4 fell off and landed on my right side. I have pain in my right shoulder , arm, wrist, and hip. Deformity noted to the right shoulder. Care prior to arrival: None. Mechanism of Injury: Fall from 2nd story. Trauma event details: Injury occurred in the [facility]. 22:26 Acuity: JUDY 2 jb4 22:26 Method Of Arrival: Wheelchair jb4 22:32 Coronavirus screen: At this time, the client does not indicate any symptoms associated jb4 with coronavirus-19. Ebola Screen: No symptoms or risks identified at this time. Initial Sepsis Screen: Does the patient meet any 2 criteria? No. Patient's initial sepsis screen is negative. Does the patient have a suspected source of infection? No. Patient's initial sepsis screen is negative. Risk Assessment: Do you want to hurt yourself or someone else? Patient reports no desire to harm self or others. Onset of symptoms was March 04, 2022. Transition of care: patient was not received from another setting of care. Trauma Activation: Alert Physician: ED Physician; Name: Alana; Notified At: 22:26; Arrived At: Physician: General Surgeon; Name: ; Notified At: 22:26; Arrived At: Physician: Radiology; Name: ; Notified At: 22:26; Arrived At: Physician: Respiratory; Name: ; Notified At: 22:26; Arrived At: Physician: Lab; Name: ; Notified At: 22:26; Arrived At: Historical: - Allergies: 22:32 No Known Allergies; jb4 - Home Meds: 22:32 amlodipine 10 mg tab 1 tab once daily [Active]; fluoxetine 10 mg Oral cap 10 mg once jb4 daily [Active]; lorazepam 0.5 mg Oral tab 1 tab 2 times per day [Active]; trazodone 50 mg Oral tab 1 tab nightly [Active]; - PMHx: 22:32 Depression; Anxiety; Hypertension; jb4 - Immunization history: Last tetanus immunization: unknown. - Social history:: Smoking status: unknown. - Family history:: not pertinent. - Hospitalizations: : No recent hospitalization is reported. Screenin:26 Abuse screen: Denies threats or abuse. Tuberculosis screening: No symptoms or risk jb4 factors identified. Primary Survey: 22:26 NO uncontrolled hemorrhage observed. A: The patient is alert. Airway: patent, No jb4 supplemental oxygen in use on arrival. Oral cavity: clear, gag reflex present, Trachea midline. Breathing/Chest: Respiratory pattern: regular, Respiratory effort: spontaneous, unlabored, Chest inspection: symmetrical rise and fall of the chest. Circulation: Skin color: pink, Skin temperature: warm, dry. Disability Alert. Exposure/Environment: All clothing and personal items were removed. Forensic evidence collection is not deemed to be indicated at this time. Items placed in patient belonging bag. Assessment: 22:50 Pain: Pain currently is 10 out of 10 on a pain scale. Derm:. Musculoskeletal: Bony tw5 deformity noted of anterior aspect of right shoulder, right bicep and right wrist. Vital Signs: 22:26 BP 153 / 72; Pulse 102; Resp 24; Temp 97.2; Pulse Ox 100% on R/A; Weight 58.06 kg (R); jb4 Height 5 ft. 4 in. (162.56 cm) (R); Pain 10/10; 22:26 Body Mass Index 21.97 (58.06 kg, 162.56 cm) jb4 Christine Coma Score: 22:26 Eye Response: spontaneous(4). Verbal Response: oriented(5). Motor Response: obeys jb4 commands(6). Total: 15. Trauma Score (Adult): 22:26 Eye Response: spontaneous(1); Verbal Response: oriented(1); Motor Response: obeys jb4 commands(2); Systolic BP: > 89 mm Hg(4); Respiratory Rate: 10 to 29 per min(4); Christine Score: 15; Trauma Score: 12 ED Course: 22:21 Patient arrived in ED. bp1 22:26 Patient has correct armband on for positive identification. Bed in low position. Call jb4 light in reach. Side rails up X 1. 22:26 Patient maintains SpO2 saturation greater than 95% on room air. jb4 22:28 Triage completed. jb4 22:29 Bonifacio Warner MD is Attending Physician. rn 22:32 Arm band placed on right wrist. jb4 22:50 Initial lab(s) drawn, by me, sent to lab. Inserted saline lock: 20 gauge in left tw5 antecubital area, using aseptic technique. Blood collected. 22:51 Rigid cervical collar applied and checked by physician. tw5 23:00 CBC with Diff Sent. tw5 23:00 Protime (+inr) Sent. tw5 23:00 Ptt, Activated Sent. tw5 23:00 Basic Metabolic Panel Sent. tw5 23:41 Angela Banda, RN is Primary Nurse. ke1 23:45 CT Traumagram (Head C Spine CAP W Con) In Process Unspecified. EDMS 03/05 01:31 XRAY Humerus RIGHT In Process Unspecified. EDMS 01:31 XRAY Forearm RIGHT In Process Unspecified. EDMS 01:31 XRAY Femur RIGHT In Process Unspecified. EDMS 02:00 Bry Campa MD is Referral Physician. rn 03:23 Orthoglass splint: Sugar tong splint applied on right arm. Sling applied to right arm. ds4 Administered Medications: 03/04 23:00 Drug: morphine 4 mg Route: IVP; Site: left antecubital; tw03/05 01:17 Follow up: Response: No adverse reaction; Pain is decreased; RASS: Alert and Calm (0) tw5 03/04 23:00 Drug: Zofran (Ondansetron) 4 mg Route: IVP; Site: left antecubital; tw5 03/05 01:17 Follow up: Response: No adverse reaction tw5 00:11 Drug: morphine 4 mg Route: IVP; Site: left antecubital; ke1 01:16 Follow up: Response: No adverse reaction; RASS: Alert and Calm (0) tw 01:16 Drug: morphine 4 mg Route: IVP; Site: left antecubital; tw5 Outcome: 02:01 Discharge ordered by . rn 04:03 Patient left the ED. tw5 Signatures: Dispatcher [employer] EDMS Bonifacio Warner MD MD rn Swanson, Donovan ds4 Juvenal Mccoy RN RN jb4 Nafisa Cook Tiffany tw5 Angela Banda RN RN ke1
--- NOTE | 2022-03-05 02:02 | EDPHYS ---
Physician Documentation [facility] Name: Mary Zhang Age: 61 yrs Sex: Female : 1960 Arrival Date: 03/04/2022 Time: 22:21 Bed 15 Private MD: ED Physician Bonifacio Warner HPI: 03/04 22:37 This 61 yrs old Female presents to ER via Wheelchair with complaints of Fall Injury. rn 22:37 Details of fall: The patient fell from a height, out of a building, 2 floors, in a rn freefall-type manner. Onset: The symptoms/episode began/occurred just prior to arrival. Associated injuries: The patient sustained injury to the head, neck injury, injury to the chest, injury to the abdomen, right shoulder. Severity of symptoms: At their worst the symptoms were moderate, in the emergency department the symptoms are unchanged. The patient has not experienced similar symptoms in the past. The patient has not recently seen a physician. Reports fall from second floor, off of stairs, states no rail present, landed on her right side, reports head/neck/right shoulder/right hip and pelvis pain. Not sure if LOC. . Historical: - Allergies: 22:32 No Known Allergies; jb4 - Home Meds: 22:32 amlodipine 10 mg tab 1 tab once daily [Active]; fluoxetine 10 mg Oral cap 10 mg once jb4 daily [Active]; lorazepam 0.5 mg Oral tab 1 tab 2 times per day [Active]; trazodone 50 mg Oral tab 1 tab nightly [Active]; - PMHx: 22:32 Depression; Anxiety; Hypertension; jb4 - Immunization history: Last tetanus immunization: unknown. - Social history:: Smoking status: unknown. - Family history:: not pertinent. - Hospitalizations: : No recent hospitalization is reported. ROS: 22:37 Constitutional: Negative for fever, chills, and weight loss, Eyes: Negative for injury, rn pain, redness, and discharge, Neck: + neck pain Cardiovascular: Negative for chest pain, palpitations, and edema, Respiratory: Negative for shortness of breath, cough, wheezing, and pleuritic chest pain, Abdomen/GI: Negative for abdominal pain, nausea, vomiting, diarrhea, and constipation, Back: + back pain MS/Extremity: + right shoulder pain, + right hip pain Skin: Negative for injury, rash, and discoloration, Neuro: + headache Exam: 22:37 Constitutional: This is a well developed, well nourished patient who is awake, alert, rn appears uncomfortable, in wheelchair Head/Face: Normocephalic, atraumatic. Eyes: Periorbital areas with no swelling, redness, or edema. ENT: No oral trauma Neck: In Ccollar, no midline tenderness, no crepitus Chest/axilla: Normal chest wall appearance and motion. Nontender with no deformity. No lesions are appreciated. Cardiovascular: Tachycardic, regular Respiratory: + mild tachypnea, no retractions, speaking full sentences. Abdomen/GI: soft, non-tender, non-distended, no ecchymosis Back: No spinal tenderness. Skin: Warm, dry MS/ Extremity: Pulses equal, no cyanosis. + right shoulder passive flexion with tenderness mid/proximal humerus. + mild painful ROM with passive ROM right hip. Surgical scar present right mid forearm (patient states known fracture there) Neuro: Awake and alert, GCS 15, oriented to person, place, time, and situation. Cranial nerves II-XII grossly intact. Motor strength 5/5 in all extremities. Sensory grossly intact. Vital Signs: 22:26 BP 153 / 72; Pulse 102; Resp 24; Temp 97.2; Pulse Ox 100% on R/A; Weight 58.06 kg (R); jb4 Height 5 ft. 4 in. (162.56 cm) (R); Pain 10/10; 22:26 Body Mass Index 21.97 (58.06 kg, 162.56 cm) jb4 [place] Coma Score: 22:26 Eye Response: spontaneous(4). Verbal Response: oriented(5). Motor Response: obeys jb4 commands(6). Total: 15. Trauma Score (Adult): 22:26 Eye Response: spontaneous(1); Verbal Response: oriented(1); Motor Response: obeys jb4 commands(2); Systolic BP: > 89 mm Hg(4); Respiratory Rate: 10 to 29 per min(4); Christine Score: 15; Trauma Score: 12 MDM: 22:29 Patient medically screened. rn 23:09 ED course: laboratory development technician still has not taken patient to CT despite multiple conversations. + rn delay of care due to CT.. 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 Data reviewed: vital signs, nurses notes, radiologic studies, CT scan, plain films, and as a result, I will discharge patient. Counseling: I had a detailed discussion with the patient and/or guardian regarding: the historical points, exam findings, and any diagnostic results supporting the discharge/admit diagnosis, lab results, radiology results, the need for outpatient follow up, to return to the emergency department if symptoms worsen or persist or if there are any questions or concerns that arise at home. Response to treatment: the patient's symptoms have markedly improved after treatment, and as a result, I will discharge patient. 03/04 22:36 Order name: CBC with Diff; Complete Time: 00:25 rn 03/04 22:36 Order name: Basic Metabolic Panel; Complete Time: 00: 03/04 22:36 Order name: CT Traumagram (Head C Spine CAP W Con) rn 03/04 22:36 Order name: Protime (+inr); Complete Time: 00:25 rn 03/04 22:36 Order name: Ptt, Activated; Complete Time: 00: rn 03/04 22:47 Order name: Type And Screen; Complete Time: 00: rn 03/04 22:36 Order name: IV Start; Complete Time: 22:50 rn 03/05 00:32 Order name: XRAY Humerus RIGHT rn 03/05 00:32 Order name: XRAY Forearm RIGHT rn 03/05 00:39 Order name: XRAY Femur RIGHT rn 03/04 22:36 Order name: Cardiac monitoring; Complete Time: 03: rn 03/04 22:36 Order name: O2 Sat Monitoring; Complete Time: 03: rn 03/04 23:37 Order name: Sling; Complete Time: 03: rn 03/05 01:56 Order name: Splint - Sugar Tong - Forearm: right forearm/wrist; Complete Time: 03: rn Administered Medications: 03/04 23:00 Drug: morphine 4 mg Route: IVP; Site: left antecubital; tw03/05 01:17 Follow up: Response: No adverse reaction; Pain is decreased; RASS: Alert and Calm (0) tw5 04/16 23:00 Drug: Zofran (Ondansetron) 4 mg Route: IVP; Site: left antecubital; tw5 03/05 01:17 Follow up: Response: No adverse reaction 00:11 Drug: morphine 4 mg Route: IVP; Site: left antecubital; ke1 01:16 Follow up: Response: No adverse reaction; RASS: Alert and Calm (0) 01:16 Drug: morphine 4 mg Route: IVP; Site: left antecubital; tw5 Disposition Summary: 03/05/22 02:01 Discharge Ordered Location: Home rn Problem: new rn Symptoms: have improved rn Condition: Stable rn Diagnosis - Fracture of upper end of humerus rn - Displaced transverse fracture of shaft of right radius, initial encounter for rn closed fracture - Fracture of fourth lumbar vertebra rn - Nondisplaced right pubic ramus fracture rn Followup: rn - With: Bry Campa MD - When: 2 - 3 days - Reason: Recheck today's complaints, Re-evaluation by your physician Discharge Instructions: - Discharge Summary Sheet rn - Spinal Compression Fracture rn - Cast or Splint Care, Adult rn - Humerus Fracture Treated With Immobilization rn - Radial Fracture rn - Humerus Fracture Rehab-SportsMed rn - Forearm Fracture Rehab-SportsMed rn Forms: - Medication Reconciliation Form rn - Thank You Letter rn - Antibiotic clinical staff rn - Prescription Opioid Use rn Prescriptions: - Cyclobenzaprine 10 mg Oral Tablet - take 1 tablet by ORAL route every 8 hours As needed; 15 tablet; Refills: 0, rn Product Selection Permitted - Tylenol-Codeine #3 300 mg-30 mg Oral - take 1 tablet by ORAL route every 6-8 hours; 15 tablet; Refills: 0, Product rn Selection Permitted Signatures: Dispatcher [employer] [facility] Bonifacio Warner MD MD rn Bryson, James, RN RN Rona Saleem tw5 Angela Banda RN RN ke1 Corrections: (The following items were deleted from the chart) 03/04 23:37 22:37 Constitutional: This is a well developed, well nourished patient who is awake, rn alert, appears uncomfortable, in wheelchair Head/Face: Normocephalic, atraumatic. Eyes: Periorbital areas with no swelling, redness, or edema. ENT: No oral trauma Neck: In Ccollar, no midline tenderness, no crepitus Chest/axilla: Normal chest wall appearance and motion. Nontender with no deformity. No lesions are appreciated. Cardiovascular: Tachycardic, regular Respiratory: + mild tachypnea, no retractions, speaking full sentences. Abdomen/GI: soft, non-tender, non-distended, no ecchymosis Back: No spinal tenderness. Skin: Warm, dry MS/ Extremity: Pulses equal, no cyanosis. + right shoulder passive flexion with tenderness mid/proximal humerus. + mild painful ROM with passive ROM right hip. Neuro: Awake and alert, GCS 15, oriented to person, place, time, and situation. Cranial nerves II-XII grossly intact. Motor strength 5/5 in all extremities. Sensory grossly intact. rn
[2022-03-05 04:35] VITALS: BP 153/72; TEMP 97.2; O2SAT 100
--- NOTE | 2022-03-06 10:59 | RAD REPORT ---
EXAM DESCRIPTION: CT - Head C Spine Cap W Con - 03/05/2022 6:54 am ADDENDUM #1 Upon further review of the images there is a questionable nondisplaced fracture inferior right pubic ramus on image 74/[id number]. Electronically signed by: Oh Mandujano MD 03/05/2022 1:53 AM CDT End of Addendum EXAM DESCRIPTION: Head C Spine Cap W Con 03/05/2022 12:07 AM CDT CLINICAL HISTORY: 61 years, Female, Fall from second story, head/neck/back/chest/pelvic pain COMPARISON: 02/24/2021. FINDINGS: Multiple transaxial tomograms of the brain were obtained from the base of the skull to the vertex without contrast. 2-D multiplanar reformats and the coronal and sagittal plane were performed and reviewed. Multiple axial CT images through the cervical spine were obtained at 2 mm slice thickness at 2 mm int erval reconstruction. In addition 2-D multiplanar reformats and the sagittal coronal plane were perfo rmed and reviewed. Contrast-enhanced images of the chest, abdomen and pelvis were performed utilizing 5 mm slice thickne ss at 5 mm interval reconstruction from the lung apices to the ischial tuberosities after the adminis tration of IV contrast. This exam was performed according to our departmental dose-optimization protocol, which includes auto mated exposure control, adjustment of the mA and/or kV according to patient size and/or use of iterat lay reconstruction technique. CT head: Brain parenchyma demonstrate mild prominence of the sulci and gyri are corresponding to mild cerebral and cerebellar atrophy noted the. There is no midline shift and/or mass effect. There is no evidence for acute intracranial hemorrhage. Lateral ventricles and cisterns displace normal appear ance. No intra or extra axial fluid collections were seen. The calvarium is intact with no evidence for fracture. The visualized portions of the paranasal sinuses and orbits demonstrate to be clear. CT C-spine: The alignment of the vertebral bodies are normal. There is no evidence of fracture or s ubluxation. There is degenerative disc disease with decreased intervertebral disc height, anterior sp ondylosis and posterior osteophyte complex at C5/C6 and C6/C7. There is 2 mm anterolisthesis of C3 ov er C4 from uncovertebral degenerative changes The spinal canal demonstrate no evidence for significan t stenosis. Neural foramina demonstrate to be unremarkable. There are uncovertebral degenerative mora ges C1-C6. There is no prevertebral soft tissue swelling. Sagittal coronal reformatted images demon strate no subluxation or bony abnormalities. CT chest: The lungs parenchyma demonstrate to be clear. No masses and/or nodules are identified. Ther e is no evidence for significant pneumothorax. The trachea mainstem bronchus demonstrate to be normal. There is no significant pleural and/or perica rdial effusions. The thoracic aorta demonstrate to be within normal limits. There is no evidence for dissection. Minim al intimal calcification descending thoracic aorta. The heart is not enlarged. There are no significa nt coronary artery calcification. There is no significant mediastinal and/or hilar lymphadenopathy. The axillary regions demonstrate to be clear. The bone windows demonstrated presence of a acute partially anteriorly displaced right humeral neck. Portions of the clavicles scapulas demonstrate to be normal with no definitive fractures. The sternum, thoracic spine, bilateral ribs demonstrate to be within normal limits. No definitive dis placed fractures/or compression deformity. CT abdomen pelvis: The liver demonstrate a small subcapsular hypodense lesion right hepatic lobe benny uring 0.9 cm perhaps corresponding to a small cyst and/or hemangioma. Otherwise the liver, gallbladde r, pancreas, spleen and adrenal glands demonstrate to be unremarkable, no focal lesions are noted. Th ere is no evidence for solid organ injury There is a status post right nephrectomy. The left kidney demonstrate to be unremarkable. No evidence for nephrolithiasis and/or hydronephrosis. There is no evidence for extravasation of contrast Grossly the unopacified stomach, small bowel and large bowel demonstrate to be within normal limits. There is no evidence for bowel dilatation/or free air. The urinary bladder demonstrate to be unremarkable. The uterus is absent. There are no adnexal mass es. The aorta demonstrate atherosclerotic disease extending into the aortic bifurcation. There is no retroperitoneal lymphadenopathy. There is no evidence for ascites. There is no retroperitoneal he morrhage. The bone windows demonstrate mild diffuse bony neutropenia. Degenerative changes at L4-S1. Superior e nd plate compression deformity at L4. No evidence for retropulsion. There is a lytic the fracture with callus formation and nonunion midshaft right ulna. Findings sugges t perhaps a fracture along the distal portion styloid process right radius. IMPRESSION: Acute partially anteriorly displaced right humeral neck fracture. Superior end plate compression deformity at L4 with no evidence for retropulsion. Findings suggest perhaps a fracture along the distal portion styloid process right radius. No evidence of acute traumatic injury to the chest, abdomen, or pelvis. Status post right nephrectomy. Status post hysterectomy. Atherosclerotic disease of the aorta. Electronically signed by: Oh Mandujano MD 03/05/2022 12:22 AM CDT Due to temporary technical issues with the PACS/Fluency reporting system, reports are being signed by the in house radiologists without review as a courtesy to insure prompt reporting. The interpreting radiologist is fully responsible for the content of the report.
--- NOTE | 2022-03-06 11:33 | RAD REPORT ---
EXAM DESCRIPTION: RAD - Femur Right - 03/05/2022 1:28 am CLINICAL HISTORY: 61 years, Female, PAIN Femur Right COMPARISON: None. FINDINGS: 2 X-ray views of the Right femur were performed. There is no acute fracture or dislocation. There is no focal soft tissue swelling. There are no retained opaque foreign bodies. There is minimal degenerative changes anterior anterior superior aspect of the acetabulum. There is a inferior right pubic rami fracture with no evidence for significant displacement. There is contrast within the urinary bladder related to recent iodine study. IMPRESSION: No acute fracture or dislocation of the right femur. Nondisplaced inferior right pubic rami fracture. Electronically signed by: Oh Mandujano MD 03/05/2022 1:53 AM CDT Due to temporary technical issues with the PACS/Fluency reporting system, reports are being signed by the in house radiologists without review as a courtesy to insure prompt reporting. The interpreting radiologist is fully responsible for the content of the report.
--- NOTE | 2022-03-06 11:39 | RAD REPORT ---
EXAM DESCRIPTION: RAD - Humerus Right - 03/05/2022 1:28 am CLINICAL HISTORY: 61 years, Female, PAIN Humerus Right COMPARISON: None. FINDINGS: 2 X-ray views of the right humerus (frontal and lateral views) were performed. There is a fracture with minimal displacement along the surgical neck of the right humerus. No gross articular or soft tissue abnormality is identified. There are no gross intraosseous lesions. No periosteal reaction were seen. IMPRESSION: Minimally displaced fracture along the surgical neck of the right humerus. Electronically signed by: Oh Mandujano MD 03/05/2022 1:47 AM CDT Due to temporary technical issues with the PACS/Fluency reporting system, reports are being signed by the in house radiologists without review as a courtesy to insure prompt reporting. The interpreting radiologist is fully responsible for the content of the report.
--- NOTE | 2022-03-06 14:42 | RAD REPORT ---
EXAM DESCRIPTION: RAD - Forearm Right - 03/05/2022 1:28 am CLINICAL HISTORY: 61 years, Female, PAIN COMPARISON: None. FINDINGS: 2 X-ray views of the right forearm (frontal and lateral views) were performed. There is a findings suggesting most likely nonunion fracture mid shaft of the right ulna with the surrounding ca llus formation and residual cortical breakthrough. In addition there is a fracture along the distal r adius with palmar angulation of the distal fragment site. There is mild bony osteopenia of the carpal bones. There is a questionable small fracture along the styloid ulnar process. There are no gross in traosseous lesions. No periosteal reaction were seen. 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 Fracture along the distal radius with palmar angulation of the distal fragment site and small fractur e styloid ulnar process Electronically signed by: Oh Mandujano MD 03/05/2022 1:49 AM CDT Due to temporary technical issues with the PACS/Fluency reporting system, reports are being signed by the in house radiologists without review as a courtesy to insure prompt reporting. The interpreting radiologist is fully responsible for the content of the report.
== END 2022-03-05 04:03 | disposition home or self-care (01) ==
LOC: ER 22:21
PROC: 2W3CX1Z Immobilization of Right Lower Arm using Splint (ICD-10-PCS; principal; 2022-03-05)
DX: S32.591A Other specified fracture of right pubis, initial encounter for closed fracture (principal); S52.101A Unspecified fracture of upper end of right radius, initial encounter for closed fracture; S52.321A Displaced transverse fracture of shaft of right radius, initial encounter for closed fracture; S32.049A Unspecified fracture of fourth lumbar vertebra, initial encounter for closed fracture; W17.89XA Other fall from one level to another, initial encounter; I10 Essential (primary) hypertension; F32.A Depression, unspecified; F41.9 Anxiety disorder, unspecified
CPT/HCPCS: 85025; 80048; 36415; 86900; 86850; 85610; 86901; 85730; 70450; 72125; 71260; 74177; 73090; 73060; 73552; 96375; 96374; 99284; 29125; Q9967; J2405

== ENCOUNTER 2022-03-07 11:51 | Emergency (ER) | payer OTHER ==
--- OUTSIDE RECORDS SUMMARY | 2022-03-07 11:58 | XMS REPORT | Continuity of Care Document ---
:1960 Author Organization [facility] t Address [address] [place] [address] Care Team Providers Name Role Phone PCP, DOES NOT HAVE A Primary Care Physician Unavailable JACOB GAYTAN Attending Clinician Unavailable Al Chow MD Attending Clinician Problems Condition Condition Condition Status Onset Resolution Last Treating Co mments Source Name Details Category Date Date Treatment Clinician Date No known No known Disease Unive rs active active ity of problems problems [facility] Allergies, Adverse Reactions, Alerts Allergy Allergy Status Severity Reaction(s) Onset Inactive Treating Comm ents Source Name Type Date Date Clinician NO KNOWN Drug Active [facility] ALLERGIE Class ity of [facility] Social History Social Habit Start Date Stop Date Quantity Comments Source Exposure to Not sure [facility] SARS-CoV-2 (event) [facility] Sex Assigned At [birth year] [facility] 00:00:00 00:00:00 [facility] Smoking Status Start Date Stop Date Source Unknown if ever smoked [facility] Medications Ordered Filled Start Stop Current Ordering Indication Dosage Frequency Signature Comments Components Source Medication Medication Date Date Medication? Clinician (SIG) Name Name No known 2020-11 No Univers medications 2-08 ity of 14:26: [address] Vital Signs Vital Name Observation Time Observation Value Comments Source Body weight 2021-10-25 16:48:00 57.153 kg [facility] BMI 2021-10-25 16:48:00 21.97 kg/m2 [facility] Body temperature 2021-10-25 16:48:00 35.67 [facility] Body height 2021-10-25 16:48:00 161.3 cm Universi ty [facility] Procedures This patient has no known procedures. Encounters Start End Encounter Admission Attending Care Care Encounter Source Date/Time Date/Time Type Type Clinicians Facility Department ID 2021-11-08 2021-11-08 Outpatient R LUCILA [facility] [id number] [facility] 10:30:00 10:30:00 SORAYA gonzalez [facility] 2021-10-25 2021-10-25 Office Geraldo [facility] [id number] [facility] 10:48:08 10:59:11 [id number] AT [phone] [address] Results This patient has no known results.
[2022-03-07] MEDS ORDERED: MORPHINE 4 MG/ML SYR ONE ×2 (12:26→13:33)
[2022-03-07] MEDS ORDERED: ONDANSETRON 4 MG/2 ML VIAL ONE (12:27)
--- NOTE | 2022-03-07 13:14 | ER ---
Nurse's Notes [facility] Name: Mary Zhang Age: 61 yrs Sex: Female : 1960 Arrival Date: 03/07/2022 Time: 12:06 Bed 24 Private MD: Diagnosis: Pain in right arm;Pain in right hip Presentation: 03/07 12:08 Chief complaint: Patient states: I fell down a flight of stairs last week and I came to ld1 the ER. Pt report having a broken right arm. C/O pelvic pain \T\ right shoulder pain. Coronavirus screen: At this time, the client does not indicate any symptoms associated with coronavirus-19. Ebola Screen: No symptoms or risks identified at this time. Initial Sepsis Screen: Does the patient meet any 2 criteria? No. Patient's initial sepsis screen is negative. Does the patient have a suspected source of infection? No. Patient's initial sepsis screen is negative. Risk Assessment: Do you want to hurt yourself or someone else? Patient reports no desire to harm self or others. Onset of symptoms was March 07, 2022. 12:08 Method Of Arrival: [facility] ld1 12:08 Acuity: JUDY 3 ld1 Triage Assessment: 12:10 General: Appears in no apparent distress. uncomfortable, Behavior is calm, cooperative, ld1 appropriate for age. Pain: Complains of pain in pelvis and right arm Pain does not radiate. Pain currently is 7 out of 10 on a pain scale. Quality of pain is described as throbbing, Pain began 2-3 days ago. EENT: No signs and/or symptoms were reported regarding the EENT system. Neuro: Level of Consciousness is awake, alert, obeys commands, Oriented to person, place, time, situation. Cardiovascular: Capillary refill < 3 seconds Patient's skin is warm and dry. Respiratory: Airway is patent Respiratory effort is even, unlabored. GI: Abdomen is flat, non-distended, : No signs and/or symptoms were reported regarding the genitourinary system. Derm: No signs and/or symptoms reported regarding the dermatologic system. Musculoskeletal: Range of motion: limited in right shoulder, right elbow and right wrist Reports pain in right arm. Historical: - Allergies: 12:10 No Known Allergies; ld1 - PMHx: 12:10 Anxiety; Depression; Hypertension; ld1 - Immunization history:: Adult Immunizations up to date, Client reports having NOT received the Covid vaccine. - Social history:: Smoking status: Patient denies any tobacco usage or history of. Patient/guardian denies using alcohol. Screenin:12 Abuse screen: Denies threats or abuse. Denies injuries from another. Nutritional ld1 screening: No deficits noted. Tuberculosis screening: No symptoms or risk factors identified. Fall Risk None identified. Assessment: 12:12 Reassessment: see triage assessment. ld1 14:38 Reassessment: Patient appears in no apparent distress at this time. Patient and/or ld1 family updated on plan of care and expected duration. Pain level reassessed. Patient is alert, oriented x 3, equal unlabored respirations, skin warm/dry/pink. Vital Signs: 12:08 BP 127 / 96; Pulse 98; Resp 18; Temp 98.1(TE); Pulse Ox 98% on R/A; Weight 61.69 kg; ld1 Height 5 ft. 5 in. (165.10 cm); Pain 8/10; 14:38 BP 134 / 72; Pulse 85; Resp 17; Pulse Ox 95% on R/A; ld1 12:08 Body Mass Index 22.63 (61.69 kg, 165.10 cm) ld1 ED Course: 12:06 Patient arrived in ED. ds1 12:07 Sacha Noe NP is PHCP. pm1 12:07 Em Cisneros MD is Attending Physician. pm1 12:08 Melly Villalobos RN is Primary Nurse. ld1 12:10 Triage completed. ld1 12:10 Arm band placed on right wrist. ld1 12:12 Patient has correct armband on for positive identification. Placed in gown. Bed in low ld1 position. Call light in reach. Side rails up X2. traffic monitor specialist on. Pulse ox on. NIBP on. Door closed. Noise minimized. Warm blanket given. 12:12 No provider procedures requiring assistance completed. Maintain EMS IV. Dressing ld1 intact. Good blood return noted. Site clean \T\ dry. Gauge \T\ site: 20 G LAC. 15:12 IV discontinued, intact, bleeding controlled, No redness/swelling at site. ld1 Administered Medications: 12:35 Drug: morphine 4 mg Route: IVP; Site: left antecubital; ld1 12:35 Drug: Zofran (Ondansetron) 4 mg Route: IVP; Site: left antecubital; ld1 13:40 Drug: morphine 4 mg Route: IVP; Site: left antecubital; ld1 Outcome: 13:14 Discharge ordered by MD. pm1 15:12 Discharged to home ambulatory. ld1 15:12 Condition: stable 15:12 Discharge instructions given to patient, Instructed on discharge instructions, follow up and referral plans. Demonstrated understanding of instructions, follow-up care. 15:12 Patient left the ED. ld1 Signatures: Lizy Burton ds1 Sacha Noe NP PUBLIC POLICY ANALYST pm1 Melly Villalobos RN RN ld1
--- NOTE | 2022-03-07 13:14 | EDPHYS ---
Physician Documentation [facility] Name: Mary Zhang Age: 61 yrs Sex: Female : 1960 Arrival Date: 03/07/2022 Time: 12:06 Bed 24 Private MD: ED Physician Em Cinseros HPI: 03/07 12:14 This 61 yrs old Female presents to ER via EMS with complaints of Pain to right arm and pm1 right hip. 12:14 Patient presenting to the ER with complaints of continued pain to right arm and right pm1 hip from fall injury 2 days ago.. Onset: The symptoms/episode began/occurred 2 day(s) ago. Severity of symptoms: in the emergency department the symptoms are unchanged. The patient has not experienced similar symptoms in the past. The patient has been recently seen at the [facility] Emergency Department, this week, Patient presenting to the ER 2 days ago due to a fall from building resulting in right wrist fracture and right humerus fracture and right pelvic ramus fracture. Patient is presenting to ER today due to continued pain from fractures. Patient reports no improvement with pain with prescription pain medications. Historical: - Allergies: 12:10 No Known Allergies; ld1 - PMHx: 12:10 Anxiety; Depression; Hypertension; ld1 - Immunization history:: Adult Immunizations up to date, Client reports having NOT received the Covid vaccine. - Social history:: Smoking status: Patient denies any tobacco usage or history of. Patient/guardian denies using alcohol. ROS: 12:14 Constitutional: Negative for fever, chills, and weight loss, Cardiovascular: Negative pm1 for chest pain, palpitations, and edema, Respiratory: Negative for shortness of breath, cough, wheezing, and pleuritic chest pain, Abdomen/GI: Negative for abdominal pain, nausea, vomiting, diarrhea, and constipation, Back: Negative for injury and pain. 12:14 Skin: Negative for injury, rash, and discoloration, Neuro: Negative for headache, weakness, numbness, tingling, and seizure. 12:14 MS/extremity: Positive for pain, of the right arm and right hip. 12:14 All other systems are negative. Exam: 12:14 Constitutional: This is a well developed, well nourished patient who is awake, alert, pm1 and in no acute distress. Head/Face: Normocephalic, atraumatic. 12:14 Back: No spinal tenderness. No costovertebral tenderness. Full range of motion. Skin: Warm, dry with normal turgor. Normal color with no rashes, no lesions, and no evidence of cellulitis. 12:14 Eyes: Exam is negative for acute changes, Periorbital structures: appear normal, Pupils: no acute changes, Extraocular movements: no acute changes. 12:14 ENT: Exam is negative for acute changes, Mouth: no acute changes, Lips: normal, moist, Oral mucosa: normal, pink and intact, moist. 12:14 Neck: Exam negative for acute changes, External neck: no acute changes, ROM/movement: is normal, is supple. 12:14 Cardiovascular: Rate: normal, Rhythm: regular, Pulses: no pulse deficits are appreciated. 12:14 Respiratory: Exam negative for acute changes, respiratory distress, shortness of breath, Breath sounds: are clear throughout. 12:14 Abdomen/GI: Inspection: abdomen appears normal, Palpation: abdomen is soft and non-tender, in all quadrants. 12:14 Musculoskeletal/extremity: Compartment Syndrome exam of affected extremity: is normal. no tingling, no sensation deficit, no palor, no weak pulses. 12:14 Neuro: Exam negative for acute changes, Orientation: is normal, Mentation: is normal, Motor: is normal, moves all fours. Vital Signs: 12:08 BP 127 / 96; Pulse 98; Resp 18; Temp 98.1(TE); Pulse Ox 98% on R/A; Weight 61.69 kg; ld1 Height 5 ft. 5 in. (165.10 cm); Pain 8/10; 14:38 BP 134 / 72; Pulse 85; Resp 17; Pulse Ox 95% on R/A; ld1 12:08 Body Mass Index 22.63 (61.69 kg, 165.10 cm) ld1 MDM: 12:07 Patient medically screened. pm1 13:12 Data reviewed: vital signs. Data interpreted: Pulse oximetry: on room air is 98 %. pm1 Interpretation: normal. Counseling: I had a detailed discussion with the patient and/or guardian regarding: the historical points, exam findings, and any diagnostic results supporting the discharge/admit diagnosis, the need for outpatient follow up, to return to the emergency department if symptoms worsen or persist or if there are any questions or concerns that arise at home, Discussed radiology findings from prior visit and discussed need for follow up with orthopedics . Administered Medications: 12:35 Drug: morphine 4 mg Route: IVP; Site: left antecubital; ld1 12:35 Drug: Zofran (Ondansetron) 4 mg Route: IVP; Site: left antecubital; ld1 13:40 Drug: morphine 4 mg Route: IVP; Site: left antecubital; ld1 Disposition Summary: 03/07/22 13:14 Discharge Ordered Location: Home pm1 Problem: new pm1 Symptoms: have improved pm1 Condition: Stable pm1 Diagnosis - Pain in right arm pm1 - Pain in right hip pm1 Followup: pm1 - With: Emergency Department - When: As needed - Reason: Worsening of condition Followup: pm1 - With: Private Physician - When: 2 - 3 days - Reason: Recheck today's complaints, Continuance of care, Re-evaluation by your physician Discharge Instructions: - Discharge Summary Sheet pm1 - Cast or Splint Care, Adult pm1 - Hip Pain pm1 Forms: - Medication Reconciliation Form pm1 - Thank You Letter pm1 - Antibiotic Education pm1 - Prescription Opioid Use pm1 Addendum: 03/09/2022 18:35 Co-signature as Attending Physician, Em Cisneros MD. m a2 Signatures: Sacha Noe, KNOCKER OFF KNOCKER OFF pm1 Em Cisneros MD MD ma2 Melly Villalobos RN RN ld1
[2022-03-07 17:56] VITALS: TEMP 98.1
[2022-03-07 17:58] VITALS: BP 134/72; O2SAT 95
== END 2022-03-07 15:12 | disposition home or self-care (01) ==
LOC: ER 11:51
DX: S42.301S Unspecified fracture of shaft of humerus, right arm, sequela (principal); S32.89XS Fracture of other parts of pelvis, sequela
CPT/HCPCS: 96375; 96374; 99284; J2405